=== PATIENT | female | born 1930 | race Caucasian/White ===

== ENCOUNTER 2017-07-11 18:48 | Inpatient (IN) | payer BC ==
[2017-07-11 19:07] VITALS: BMI 24.0
--- NOTE | 2017-07-11 20:04 | PDOC ---
History of Present Illness - General History Source: Patient Exam Limitations: No Limitations - History of Present Illness Initial Comments: 07/11/17 21:00 The patient is a 87 year old female, with a significant past medical history of HTN, HLD, who presents to the emergency department with worsening generalized weakness for the past 3 weeks. Patient is accompanied by daughters, who state the patient is ambulatory with walker at home however today was unable to move. Today, patient was unable to stand and walk with walker. As per daughter, patient appears increasingly weak and has become bed bound. Patient presents with family to the ED for further evaluation. Currently, patient complains of chronic knee pain secondary to arthritis. Note, patient lives alone at home and family is requesting the patient to be placed in a rehab or NH facility. Patient denies any recent trauma, injury. She denies chest pain, headache or dizziness. She denies fever, chills, abdominal pain, nausea, vomit, diarrhea or constipation. She denies dysuria, frequency, urgency or hematuria. Patient denies sick contacts or recent travel. Allergies: None Past surgical history: Hysterectomy Social history: None PCP: Dr. Clarke <Lauren Yuan - Last Filed: 07/11/17 22:14> - General History Source: Family <Sin Sanchez - Last Filed: 07/12/17 19:30> - General Chief Complaint: Pain Stated Complaint: PAIN Time Seen by Provider: 07/11/17 19:57 Past History <Lauren Yuan - Last Filed: 07/11/17 22:14> - Past Medical History HTN: Yes Hypercholesterolemia: Yes - Suicide/Smoking/Psychosocial Hx Smoking History: Never smoked Have you smoked in the past 12 months: No Information on smoking cessation initiated: No Hx Alcohol Use: No Drug/Substance Use Hx: No Substance Use Type: None <Sin Sanchez - Last Filed: 07/12/17 19:30> - Past Medical History Allergies/Adverse Reactions: Allergies Allergy/AdvReac Type Severity Reaction Status Date / Time No Known Allergies Allergy Verified 03/18/15 18:57 Home Medications: Ambulatory Orders Amlodipine Besylate [Norvasc -] 5 mg PO DAILY 03/01/15 Lovastatin 40 mg PO DAILY 03/01/15 Levothyroxine [Synthroid -] 25 mcg PO DAILY@0700 #30 tablet 03/21/15 Lisinopril [Prinivil -] 40 mg PO DAILY 07/11/17 Review of Systems - Review of Systems Able to Perform ROS?: Yes Comments:: 07/11/17 21:00 CONSTITUTIONAL: +generalized weakness Absent: fever, chills, diaphoresis, , malaise, loss of appetite HEENT: Absent: rhinorrhea, nasal congestion, throat pain, throat swelling, difficulty swallowing, mouth swelling, ear pain, eye pain, visual Changes CARDIOVASCULAR: Absent: chest pain, syncope, palpitations, irregular heart rate, lightheadedness , peripheral edema RESPIRATORY: Absent: cough, shortness of breath, dyspnea with exertion, orthopnea, wheezing, stridor, hemoptysis GASTROINTESTINAL: Absent: abdominal pain, abdominal distension, nausea, vomiting, diarrhea, constipation, melena, hematochezia GENITOURINARY: Absent: dysuria, frequency, urgency, hesitancy, hematuria, flank pain, genital pain MUSCULOSKELETAL: Absent: myalgia, arthralgia, joint swelling SKIN: Absent: rash, itching, pallor HEMATOLOGIC/IMMUNOLOGIC: Absent: easy bleeding, easy bruising, lymphadenopathy, frequent infections ENDOCRINE: Absent: unexplained weight gain, unexplained weight loss, heat intolerance, cold intolerance NEUROLOGIC: Absent: headache, focal weakness or paresthesias, dizziness, unsteady gait, seizure, mental status changes, bladder or bowel incontinence PSYCHIATRIC: Absent: anxiety, depression, suicidal or homicidal ideation, hallucinations. <Lauren Yuan - Last Filed: 07/11/17 22:14> *Physical Exam - Vital Signs Last Vital Signs Temp Pulse Resp BP Pulse Ox 98.1 F 84 18 136/66 98 07/11/17 18:48 07/11/17 18:48 07/11/17 18:48 07/11/17 18:48 07/11/17 18:48 - Physical Exam Comments: 07/11/17 21:00 GENERAL: Well developed, well nourished. Awake and alert. In no acute distress. HEENT: Normocephalic, atraumatic. PERRLA, EOMI. No conjunctival pallor. Sclerae are non -icteric. Moist mucous membranes. Oropharynx is clear. NECK: Supple. Full ROM. No JVD. Carotid pulses 2+ and symmetric, without bruits. No thyromegaly. No lymphadenopathy. CARDIOVASCULAR: Regular rate and rhythm. No murmurs, rubs, or gallops. Distal pulses are 2+ and symmetric. PULMONARY: No evidence of respiratory distress. Lungs clear to auscultation bilaterally. No wheezing, rales or rhonchi. ABDOMINAL: Soft. Non-tender. Non-distended. No rebound or guarding. No organomegaly. Normoactive bowel sounds. MUSCULOSKELETAL Normal range of motion at all joints. No bony deformities or tenderness. No CVA tenderness. EXTREMITIES: No cyanosis. No clubbing. No edema. No calf tenderness. SKIN: Warm and dry. Normal capillary refill. No rashes. No jaundice. NEUROLOGICAL: Alert, awake, appropriate. Cranial nerves 2-12 intact. No deficits to light touch and temperature in face, upper extremities and lower extremities. No motor deficits in the in face, upper extremities and lower extremities. Normoreflexic in the upper and lower extremities. Normal speech. Toes are downgoing bilaterally. Gait is normal without ataxia. PSYCHIATRIC: Cooperative. Good eye contact. Appropriate mood and affect. <Lauren Yuan - Last Filed: 07/11/17 22:14> - Vital Signs Last Vital Signs Temp Pulse Resp BP Pulse Ox 98.1 F 84 18 136/66 98 07/11/17 18:48 07/11/17 18:48 07/11/17 18:48 07/11/17 18:48 07/11/17 18:48 <Sin Sanchez - Last Filed: 07/12/17 19:30> Heart Score/ECG Review #1 07/11/17 22:[address] Daniel Antunez. rate 63 bpm Ventricular- paced rhythm Abnormal ECG <Lauren Yuan - Last Filed: 07/11/17 22:14> ED Treatment Course - LABORATORY CBC & Chemistry Diagram: 07/11/17 21:48 07/11/17 21:48 <Lauren Yuan - Last Filed: 07/11/17 22:14> - LABORATORY CBC & Chemistry Diagram: 07/12/17 06:25 07/12/17 06:25 <Sin Sanchez - Last Filed: 07/12/17 19:30> Medical Decision Making - Medical Decision Making 07/11/17 21:02 CXR Impression: Hazy opacity in the lingula with silhouetting of the left heart border is compatible with pneumonia in the appropriate clinical setting. Follow- up is recommended after completion of therapy to exclude other processes. Small left pleural effusion. Mild pulmonary vascular congestion. Reported By: Mia Melo MD 07/11/17205307/11/17 22:14 Dr. Clarke paged via phone answering service Awaiting call back <Lauren Yuan - Last Filed: 07/11/17 22:14> - Medical Decision Making 07/12/17 19:29 Dr. Sanchez: The scribe's documentation has been prepared under my direction and personally reviewed by me in its entirery. I confirm that the note above accurately reflects all work, treatment, procedures, and medical decision making performed by me. <Sin Sanchez - Last Filed: 07/12/17 19:30> *DC/Admit/Observation/Transfer - Attestations Scribe Attestion: 07/11/17 21:01 Documentation prepared by Lauren Yuan, acting as biomedical technician for Sin Sanchez DO. <Lauren Yuan - Last Filed: 07/11/17 22:14> - Discharge Dispostion Admit: Yes <Sin Sanchez - Last Filed: 07/12/17 19:30> Diagnosis at time of Disposition: UTI (urinary tract infection), Pneumonia - Referrals
[2017-07-11] MEDS ORDERED: AZITHROMYCIN IVPB 500 MG in DEXTROSE 5%-WATER - 250 ML IVPB ONE (21:07)
[2017-07-11 21:55] LABS: BASOPHIL 0.7 % (0-2.0); EOSINOPHIL 2.2 % (0-4.5); MCH 27.8 pg (25.7-33.7); MCHC 33.4 g/dl (32.0-36.0); MEAN CELL VOLUME 83.1 fl (80-96); MEAN PLT VOLUME 9.1 fl (7.5-11.1); NEUTROPHILS 69.5 % (42.8-82.8); PLATELET COUNT 261 K/MM3 (134-434); RDW 13.5 % (11.6-15.6); WHITE BLOOD COUNT 10.9 K/mm3 (4.0-10.0)
[2017-07-11 21:59] LABS: URINE APPEARANCE SLCLOUDY; URINE BILIRUBIN NEGATIVE (NEGATIVE); URINE BLOOD NEGATIVE (NEGATIVE); URINE COLOR YELLOW; URINE GLUCOSE (UA) NEGATIVE (NEGATIVE); URINE KETONE NEGATIVE (NEGATIVE); URINE NITRITE POSITIVE (NEGATIVE); URINE PROTEIN NEGATIVE (NEGATIVE); URINE UROBILINOGEN NEGATIVE mg/dL (0.2-1.0)
[2017-07-11] MEDS ORDERED: ACETAMINOPHEN 1000 MG/100 ML VIAL (NON FORMULARY) IVPB ONE (22:02)
[2017-07-11] MEDS ORDERED: ACETAMINOPHEN INJECTION 100 ML IVPB ONE (22:03)
[2017-07-11] MEDS ORDERED: cefTRIAXone SODIUM 1 GM VIAL ONE (22:04)
[2017-07-11 22:07] LABS: URINE RBC 2 /hpf (0-3); URINE WBC 27 /hpf (3-5)
[2017-07-11 22:08] LABS: INR 0.99 (0.82-1.09); PROTHROMBIN TIME (PATIENT) 11.2 SEC (9.98-11.88); URINE BACTERIA FEW /hpf (NONE SEEN); URINE HYALINE CAST 3 /lpf; URINE MUCUS RARE
[2017-07-11 22:18] LABS: ALBUMIN 3.1 g/dl (3.4-5.0); ANION GAP 7 (8-16); BILIRUBIN,TOTAL 0.4 mg/dL (0.2-1.0); CALCIUM 8.7 mg/dL (8.5-10.1); CO2 27 mmol/L (21-32); CREATININE 0.9 mg/dL (0.55-1.02); GLUCOSE,RANDOM 91 mg/dL (74-106); MAGNESIUM 2.6 mg/dL (1.8-2.4); SGOT/AST 30 U/L (15-37); SGPT/ALT 46 U/L (12-78); TOT PROT 7.1 g/dl (6.4-8.2)
[2017-07-11 22:21] LABS: ALK PHOS 287 U/L (45-117); CPK 38 IU/L (26-192); TROPONIN I < 0.02 ng/ml (0.00-0.05)
[2017-07-11] MEDS ORDERED: ALBUTEROL SO4 0.083% IH SOL 2.5 MG/3 ML VIAL.NEB. NEB PRN (23:12)
[2017-07-12] MEDS ORDERED: AZITHROMYCIN IVPB 250 ML IVPB ONE (00:31)
[2017-07-12] MEDS: LEVOTHYROXINE NA 25 MCG TABLET (FP) PO SCH (06:18)
[2017-07-12] MEDS: ACETAMINOPHEN 325 MG TABLET (FP) PO PRN ×2 (06:20→19:47)
[2017-07-12 07:39] LABS: BASOPHIL 1.7 % (0-2.0); EOSINOPHIL 1.7 % (0-4.5); MCHC 32.5 g/dl (32.0-36.0); MEAN CELL VOLUME 82.9 fl (80-96); MEAN PLT VOLUME 9.6 fl (7.5-11.1); NEUTROPHILS 76.1 % (42.8-82.8); PLATELET COUNT 253 K/MM3 (134-434); RDW 13.5 % (11.6-15.6); WHITE BLOOD COUNT 12.5 K/mm3 (4.0-10.0)
[2017-07-12 08:06] LABS: ALBUMIN 2.9 g/dl (3.4-5.0); ANION GAP 14 (8-16); CALCIUM 8.8 mg/dL (8.5-10.1); CO2 22 mmol/L (21-32); GLUCOSE,RANDOM 87 mg/dL (74-106)
[2017-07-12 08:12] LABS: ALK PHOS 264 U/L (45-117); BILIRUBIN,TOTAL 0.7 mg/dL (0.2-1.0); CREATININE 0.7 mg/dL (0.55-1.02); SGOT/AST 27 U/L (15-37); SGPT/ALT 39 U/L (12-78); TOT PROT 6.7 g/dl (6.4-8.2)
[2017-07-12 09:29] LABS: URINE LEUK ESTERASE 1+ (NEGATIVE)
[2017-07-12] MEDS ORDERED: PT OWN MED DRAWER 7, Y5N ONE ×2 (10:04→10:33)
--- NOTE | 2017-07-12 10:04 | HP ---
Admitting History and Physical - Primary Care Physician PCP: Salazar Clarke - Admission Chief Complaint: weakness History of Present Illness: ER HISTORY - History of Present Illness Initial Comments: 07/11/17 21:00 The patient is a 87 year old female, with a significant past medical history of HTN, HLD, who presents to the emergency department with worsening generalized weakness for the past 3 weeks. Patient is accompanied by daughters, who state the patient is ambulatory with walker at home however today was unable to move. Today, patient was unable to stand and walk with walker. As per daughter, patient appears increasingly weak and has become bed bound. Patient presents with family to the ED for further evaluation. Currently, patient complains of chronic knee pain secondary to arthritis. Note, patient lives alone at home and family is requesting the patient to be placed in a rehab or NH facility. Patient denies any recent trauma, injury. She denies chest pain, headache or dizziness. She denies fever, chills, abdominal pain, nausea, vomit, diarrhea or constipation. She denies dysuria, frequency, urgency or hematuria. Patient denies sick contacts or recent travel. Allergies: None Past surgical history: Hysterectomy Social history: None PCP: Dr. Clarke Pt examined on the floors Daughters at bedside Spoke with ER MD yesterday Pt has been progressively getting weaker for last 3 weeks. She has osteoarthritis of knees and usually walks with walker but has not been able to get up OOB for last week. c/o pain in knees B/L , right wrist -- wears a splint and neck pain Denies h/o fall No c/o cough or SOB or fever History Source: Patient, Family Member Limitations to Obtaining History: No Limitations - Past Medical History Cardiovascular: Yes: HTN, Hyperlipdemia, Other (s/p PPM - h/p AVblock) ...: No Rheumatology: Yes: Other (arthritis) - Past Surgical History Past Surgical History: Yes: None - Smoking History Smoking history: Never smoked Have you smoked in the past 12 months: No - Alcohol/Substance Use Hx Alcohol Use: No Home Medications - Allergies Allergies/Adverse Reactions: Allergies Allergy/AdvReac Type Severity Reaction Status Date / Time No Known Allergies Allergy Verified 03/18/15 18:57 - Home Medications Home Medications: Ambulatory Orders Amlodipine Besylate [Norvasc -] 5 mg PO DAILY 03/01/15 Lovastatin 40 mg PO DAILY 03/01/15 Levothyroxine [Synthroid -] 25 mcg PO DAILY@0700 #30 tablet 03/21/15 Lisinopril [Prinivil -] 40 mg PO DAILY 07/11/17 Review of Systems - Review of Systems Constitutional: reports: Weakness. denies: Chills, Fever, Loss of Appetite Respiratory: denies: Cough, SOB Genitourinary: denies: Burning, Discharge, Dysuria, Flank Pain Musculoskeletal: reports: Back Pain, Joint Pain Physical Examination Vital Signs: Vital Signs Temperature 98.5 F 07/12/17 09:57 Pulse Rate 86 07/12/17 09:57 Respiratory Rate 20 07/12/17 09:57 Blood Pressure 131/65 07/12/17 09:57 O2 Sat by Pulse Oximetry (%) 97 07/12/17 03:23 Constitutional: Yes: No Distress Cardiovascular: Yes: Regular Rate and Rhythm Respiratory: Yes: Diminished Gastrointestinal: Yes: Normal Bowel Sounds, Soft. No: Distention, Tenderness Extremities: Yes: Other (effusion B/L knee joints , right wrist splint-- no swelling noted) Edema: No Labs: CBC, BMP 07/12/17 06:25 07/12/17 06:25 Imaging - Results Chest X-ray: Image Reviewed EKG: Image Reviewed Problem List - Problems (1) Pneumonia Code(s): J18.9 - PNEUMONIA, UNSPECIFIED ORGANISM (2) UTI (urinary tract infection) Code(s): N39.0 - URINARY TRACT INFECTION, SITE NOT SPECIFIED (3) Hyperlipidemia Code(s): E78.5 - HYPERLIPIDEMIA, UNSPECIFIED (4) Hypertension Code(s): I10 - ESSENTIAL (PRIMARY) HYPERTENSION Qualifiers: Hypertension type: essential hypertension Qualified Code(s): I10 - Essential (primary) hypertension; I10 - Essential (primary) hypertension; I10 - Essential (primary) hypertension (5) Weakness generalized Code(s): R53.1 - WEAKNESS Assessment/Plan PLAN on Antibiotics check urine antigens cultures done check xrays of knees, rt wrist and C Spine Motrin as needed Albuterol as needed PT eval will eventually need STR DVT prophylaxis-- Lovenox sc
[2017-07-12] MEDS: amLODIPine BESYLATE 5 MG TABLET (FP) PO SCH (10:10)
[2017-07-12] MEDS: LISINOPRIL 20 MG TABLET (FP) PO SCH (10:10)
[2017-07-12] MEDS: CEFTRIAXONE 1 G/50 ML PREMIX 50 ML IVPB SCH (12:23)
--- NOTE | 2017-07-12 13:06 | EKG ---
Test Reason : Blood Pressure : / mmHG Vent. Rate : 063 BPM Atrial Rate : 043 BPM P-R Int : 000 ms QRS Dur : 170 ms QT Int : 464 ms P-R-T Axes : 000 267 088 degrees QTc Int : 474 ms Ventricular-paced rhythm ABNORMAL ECG WHEN COMPARED WITH ECG OF 19-MAR-2015 08:43, ELECTRONIC VENTRICULAR PACEMAKER HAS REPLACED SINUS RHYTHM VENT. RATE HAS INCREASED BY 23 BPM Confirmed by DELMA CULP MD ([id number]) on 07/12/2017 1:05:50 PM Referred By: Confirmed By:DELMA CULP MD
[2017-07-12] MEDS: AZITHROMYCIN IVPB 250 ML IVPB SCH (14:12)
[2017-07-12] MEDS: LIDOCAINE 5% TOPICAL PATCH TP SCH (18:30)
[2017-07-12] MEDS: ATORVASTATIN CA 10 MG TABLET (FP) PO SCH (21:24)
[2017-07-13] MEDS: LEVOTHYROXINE NA 25 MCG TABLET (FP) PO SCH (06:21)
[2017-07-13 07:57] LABS: EOSINOPHIL 1.7 % (0-4.5); MCH 26.7 pg (25.7-33.7); MCHC 32.4 g/dl (32.0-36.0); MEAN CELL VOLUME 82.5 fl (80-96); MEAN PLT VOLUME 9.7 fl (7.5-11.1); NEUTROPHILS 76.8 % (42.8-82.8); PLATELET COUNT 253 K/MM3 (134-434); RDW 13.5 % (11.6-15.6); WHITE BLOOD COUNT 12.8 K/mm3 (4.0-10.0)
[2017-07-13] MEDS: CEFTRIAXONE 1 G/50 ML PREMIX 50 ML IVPB SCH (09:20)
[2017-07-13] MEDS: ENOXAPARIN NA (PORCINE) 30 MG/0.3 ML DISP.SYRIN SQ SCH (09:21)
[2017-07-13] MEDS: amLODIPine BESYLATE 5 MG TABLET (FP) PO SCH (09:21)
[2017-07-13] MEDS: LISINOPRIL 20 MG TABLET (FP) PO SCH (09:21)
[2017-07-13] MEDS: LIDOCAINE 5% TOPICAL PATCH TP SCH (09:33)
--- NOTE | 2017-07-13 13:11 | PN ---
Progress Note, Physician Chief Complaint: has pain in knees otherwise she is feels fine - Current Medication List Current Medications: Active Medications Acetaminophen (Tylenol -) 650 mg PO Q6H PRN PRN Reason: FEVER Last Admin: 07/12/17 19:47 Dose: 650 mg Albuterol Sulfate (Ventolin 0.083% Nebulizer Soln -) 1 amp NEB Q8H PRN PRN Reason: SHORT OF BREATH/WHEEZING Amlodipine Besylate (Norvasc -) 5 mg PO DAILY [facility] Last Admin: 07/13/17 09:21 Dose: 5 mg Atorvastatin Calcium (Lipitor -) 10 mg PO HS [facility] Last Admin: 07/12/17 21:24 Dose: 10 mg Enoxaparin Sodium (Lovenox -) 30 mg SQ DAILY [facility] Last Admin: 07/13/17 09:21 Dose: 30 mg Azithromycin (Zithromax 500mg Ivpb (Pre-Docked)) 250 mls @ 250 mls/hr IVPB DAILY [facility] Last Admin: 07/12/17 14:12 Dose: 250 mls/hr CEFTRIAXONE 1 G/50 ML PREMIX (Ceftriaxone 1 Gm-D5w Bag) 50 mls @ 100 mls/hr IVPB DAILY [facility] Last Admin: 07/13/17 09:20 Dose: 100 mls/hr Ibuprofen (Motrin -) 400 mg PO Q6H PRN PRN Reason: PAIN Levothyroxine Sodium (Synthroid -) 25 mcg PO DAILY@0700 [facility] Last Admin: 07/13/17 06:21 Dose: 25 mcg Lidocaine (Lidoderm Patch -) 2 patch TP DAILY [facility] Last Admin: 07/13/17 09:33 Dose: 2 patch Lisinopril (Prinivil) 40 mg PO DAILY [facility] Last Admin: 07/13/17 09:21 Dose: 40 mg - Objective Vital Signs: Vital Signs Temperature 98.7 F 07/13/17 09:06 Pulse Rate 60 07/13/17 09:06 Respiratory Rate 20 07/13/17 09:06 Blood Pressure 137/69 07/13/17 09:06 O2 Sat by Pulse Oximetry (%) 97 07/13/17 09:00 Constitutional: Yes: No Distress Cardiovascular: Yes: Regular Rate and Rhythm Respiratory: Yes: CTA Bilaterally Gastrointestinal: Yes: Normal Bowel Sounds, Soft. No: Tenderness Extremities: Yes: Other (B/L knee effusion) Edema: No Labs: CBC, BMP 07/13/17 06:20 07/12/17 06:25 INR, PTT INR 0.99 (0.82-1.09) 07/11/17 21:48 Problem List - Problems (1) Pneumonia Code(s): J18.9 - PNEUMONIA, UNSPECIFIED ORGANISM (2) UTI (urinary tract infection) Code(s): N39.0 - URINARY TRACT INFECTION, SITE NOT SPECIFIED (3) Hyperlipidemia Code(s): E78.5 - HYPERLIPIDEMIA, UNSPECIFIED (4) Hypertension Code(s): I10 - ESSENTIAL (PRIMARY) HYPERTENSION Qualifiers: Hypertension type: essential hypertension Qualified Code(s): I10 - Essential (primary) hypertension; I10 - Essential (primary) hypertension; I10 - Essential (primary) hypertension (5) Weakness generalized Code(s): R53.1 - WEAKNESS Assessment/Plan PLAN on Antibiotics check urine antigens cultures - blood cultures negative xrays of knees, rt wrist and C Spine -noted Motrin as needed Albuterol as needed PT eval will eventually need STR DVT prophylaxis-- Lovenox sc dc planning for str
[2017-07-13 13:23] LABS: ERYTHROCYTE SEDIMENTATION RATE 86 mm/hr (0-30)
[2017-07-13] MEDS: AZITHROMYCIN IVPB 250 ML IVPB SCH (14:57)
[2017-07-13] MEDS: AZITHROMYCIN IVPB 500 MG in DEXTROSE 5%-WATER - 250 ML IVPB SCH (15:16)
[2017-07-13] MEDS: ATORVASTATIN CA 10 MG TABLET (FP) PO SCH (21:27)
[2017-07-14] MEDS: LEVOTHYROXINE NA 25 MCG TABLET (FP) PO SCH (06:19)
[2017-07-14] MEDS ORDERED: PT OWN MED DRAWER 7, Y5N ONE (10:15)
--- NOTE | 2017-07-14 10:20 | PN ---
Progress Note (short form) - Note Progress Note: patient seen and examined today Chart reviewed Chief complaint pain in the knees Daughter at bedside Patient reports Motrin not helping X-rays reviewed Vital Signs Temp 98.8 F 07/14/17 06:00 Pulse 57 L 07/14/17 06:00 Resp 19 07/14/17 06:00 BP 131/56 07/14/17 06:00 Pulse Ox 96 07/13/17 22:00 Intake & Output 07/13/17 07/13/17 07/14/17 11:59 23:59 11:59 Intake Total 0 550 Balance 0 550 Intake: IVPB 0 0 Oral 550 Other: Voiding Method Incontinent Incontinent Incontinent # Unmeasured Voids Void 3 2 Bowel Movement No # Bowel Movements 0 Active Medications Acetaminophen (Tylenol -) 650 mg PO Q6H PRN PRN Reason: FEVER Last Admin: 07/12/17 19:47 Dose: 650 mg Albuterol Sulfate (Ventolin 0.083% Nebulizer Soln -) 1 amp NEB Q8H PRN PRN Reason: SHORT OF BREATH/WHEEZING Amlodipine Besylate (Norvasc -) 5 mg PO DAILY [facility] Last Admin: 07/13/17 09:21 Dose: 5 mg Atorvastatin Calcium (Lipitor -) 10 mg PO HS [facility] Last Admin: 07/13/17 21:27 Dose: 10 mg Enoxaparin Sodium (Lovenox -) 30 mg SQ DAILY [facility] Last Admin: 07/13/17 09:21 Dose: 30 mg CEFTRIAXONE 1 G/50 ML PREMIX (Ceftriaxone 1 Gm-D5w Bag) 50 mls @ 100 mls/hr IVPB DAILY [facility] Last Admin: 07/13/17 09:20 Dose: 100 mls/hr Azithromycin 500 mg/ Dextrose 250 mls @ 250 mls/hr IVPB DAILY [facility] Last Admin: 07/13/17 15:16 Dose: 250 mls/hr Ibuprofen (Motrin -) 400 mg PO Q6H PRN PRN Reason: PAIN Levothyroxine Sodium (Synthroid -) 25 mcg PO DAILY@0700 [facility] Last Admin: 07/14/17 06:19 Dose: 25 mcg Lidocaine (Lidoderm Patch -) 2 patch TP DAILY [facility] Last Admin: 07/13/17 09:33 Dose: 2 patch Lisinopril (Prinivil) 40 mg PO DAILY [facility] Last Admin: 07/13/17 09:21 Dose: 40 mg CBC, BMP 07/13/17 06:20 07/12/17 06:25 Microbiology 07/11/17 21:48 Blood Culture - Preliminary Blood - Peripheral Venous NO GROWTH OBTAINED AFTER 48 HOURS, INCUBATION TO CONTINUE FOR 3 DAYS. 07/11/17 21:48 Blood Culture - Preliminary Blood - Peripheral Venous NO GROWTH OBTAINED AFTER 48 HOURS, INCUBATION TO CONTINUE FOR 3 DAYS. 07/12/17 03:15 Urine Culture - Final Urine - Urine Clean Catch Contaminated: Please Repeat physical exam Constitutional: Yes:mild distress due to pain Cardiovascular: Yes: Regular Rate and Rhythm Respiratory: Yes: CTA to auscultation. Gastrointestinal: Yes: Normal Bowel Sounds, Soft. No: Tenderness Extremities: Yes: Other (B/L knee effusion) Edema: No Problem List - Problems (1) Pneumonia Code(s): J18.9 - PNEUMONIA, UNSPECIFIED ORGANISM (2) UTI (urinary tract infection) Code(s): N39.0 - URINARY TRACT INFECTION, SITE NOT SPECIFIED (3) Hyperlipidemia Code(s): E78.5 - HYPERLIPIDEMIA, UNSPECIFIED (4) Hypertension Code(s): I10 - ESSENTIAL (PRIMARY) HYPERTENSION Qualifiers: Hypertension type: essential hypertension Qualified Code(s): I10 - Essential (primary) hypertension; I10 - Essential (primary) hypertension; I10 - Essential (primary) hypertension (5) Weakness generalized Code(s): R53.1 - WEAKNESS Assessment/Plan discussed with patient's daughter Will start on tramadol for pain control May need injection if not better Continue antibiotics X-rays reviewed Likely need short-term rehabilitation Patient's daughter in agreement Repeat chest x-ray tomorrow Discussed with manager case also Will follow
[2017-07-14] MEDS: LIDOCAINE 5% TOPICAL PATCH TP SCH (11:09)
[2017-07-14] MEDS: CEFTRIAXONE 1 G/50 ML PREMIX 50 ML IVPB SCH (11:09)
[2017-07-14] MEDS: amLODIPine BESYLATE 5 MG TABLET (FP) PO SCH (11:10)
[2017-07-14] MEDS: ENOXAPARIN NA (PORCINE) 30 MG/0.3 ML DISP.SYRIN SQ SCH (11:10)
[2017-07-14] MEDS: LISINOPRIL 20 MG TABLET (FP) PO SCH (11:10)
[2017-07-14] MEDS: AZITHROMYCIN IVPB 500 MG in DEXTROSE 5%-WATER - 250 ML IVPB SCH (11:10)
[2017-07-14] MEDS ORDERED: INSULIN (NOVOLOG) ASPART 100 UNITS/ML 10ML VIAL ONE (11:30)
[2017-07-14] MEDS: traMADol HCL 50 MG TABLET PO PRN (11:35)
[2017-07-14] MEDS: IBUPROFEN 400 MG TABLET (FP) PO PRN (17:31)
[2017-07-14] MEDS: ATORVASTATIN CA 10 MG TABLET (FP) PO SCH (21:17)
[2017-07-14] MEDS: ACETAMINOPHEN 325 MG TABLET (FP) PO PRN (21:17)
[2017-07-15] MEDS: LEVOTHYROXINE NA 25 MCG TABLET (FP) PO SCH (06:29)
[2017-07-15 06:42] LABS: BASOPHIL 0.8 % (0-2.0); MCH 27.4 pg (25.7-33.7); MCHC 33.3 g/dl (32.0-36.0); MEAN CELL VOLUME 82.5 fl (80-96); MEAN PLT VOLUME 9.6 fl (7.5-11.1); NEUTROPHILS 77.6 % (42.8-82.8); PLATELET COUNT 245 K/MM3 (134-434); RDW 13.2 % (11.6-15.6); WHITE BLOOD COUNT 14.5 K/mm3 (4.0-10.0)
[2017-07-15] MEDS: traMADol HCL 50 MG TABLET PO PRN (10:02)
[2017-07-15] MEDS ORDERED: PT OWN MED DRAWER 7, Y5N ONE (11:02)
[2017-07-15] MEDS: CEFTRIAXONE 1 G/50 ML PREMIX 50 ML IVPB SCH (11:16)
[2017-07-15] MEDS: LIDOCAINE 5% TOPICAL PATCH TP SCH (11:23)
[2017-07-15] MEDS: ENOXAPARIN NA (PORCINE) 30 MG/0.3 ML DISP.SYRIN SQ SCH (11:24)
[2017-07-15] MEDS: LISINOPRIL 20 MG TABLET (FP) PO SCH (11:25)
[2017-07-15] MEDS: amLODIPine BESYLATE 5 MG TABLET (FP) PO SCH (11:25)
[2017-07-15] MEDS: AZITHROMYCIN IVPB 500 MG in DEXTROSE 5%-WATER - 250 ML IVPB SCH (11:26)
--- NOTE | 2017-07-15 11:58 | PN ---
Progress Note (short form) - Note Progress Note: patient seen and examined today feels better pain much better afebrile wbc - increased Daughter at bedside Vital Signs Temp 98.7 F 07/15/17 09:10 Pulse 86 07/15/17 09:10 Resp 26 H 07/15/17 09:10 BP 137/69 07/15/17 09:10 Pulse Ox 97 07/14/17 21:00 Intake & Output 07/14/17 07/14/17 07/15/17 11:59 23:59 11:59 Intake Total 600 0 Balance 600 0 Intake: IVPB 300 0 Oral 300 TPN/PPN 0 Other: Voiding Method Incontinent Incontinent # Unmeasured Voids Void 2 1 Bowel Movement No # Bowel Movements 0 Active Medications Acetaminophen (Tylenol -) 650 mg PO Q6H PRN PRN Reason: FEVER Last Admin: 07/14/17 21:17 Dose: 650 mg Albuterol Sulfate (Ventolin 0.083% Nebulizer Soln -) 1 amp NEB Q8H PRN PRN Reason: SHORT OF BREATH/WHEEZING Amlodipine Besylate (Norvasc -) 5 mg PO DAILY [facility] Last Admin: 07/15/17 11:25 Dose: 5 mg Atorvastatin Calcium (Lipitor -) 10 mg PO HS [facility] Last Admin: 07/14/17 21:17 Dose: 10 mg Enoxaparin Sodium (Lovenox -) 30 mg SQ DAILY [facility] Last Admin: 07/15/17 11:24 Dose: 30 mg CEFTRIAXONE 1 G/50 ML PREMIX (Ceftriaxone 1 Gm-D5w Bag) 50 mls @ 100 mls/hr IVPB DAILY [facility] Last Admin: 07/15/17 11:16 Dose: 100 mls/hr Azithromycin 500 mg/ Dextrose 250 mls @ 250 mls/hr IVPB DAILY [facility] Last Admin: 07/15/17 11:26 Dose: 250 mls/hr Ibuprofen (Motrin -) 400 mg PO Q6H PRN PRN Reason: PAIN Last Admin: 07/14/17 17:31 Dose: 400 mg Levothyroxine Sodium (Synthroid -) 25 mcg PO DAILY@0700 [facility] Last Admin: 07/15/17 06:29 Dose: 25 mcg Lidocaine (Lidoderm Patch -) 2 patch TP DAILY [facility] Last Admin: 07/15/17 11:23 Dose: 2 patch Lisinopril (Prinivil) 40 mg PO DAILY [facility] Last Admin: 07/15/17 11:25 Dose: 40 mg Tramadol HCl (Ultram -) 50 mg PO Q8H PRN PRN Reason: PAIN Last Admin: 07/15/17 10:02 Dose: 50 mg cxr-- better CBC, BMP 07/15/17 05:55 07/12/17 06:25 Microbiology 07/11/17 21:48 Blood Culture - Preliminary Blood - Peripheral Venous NO GROWTH OBTAINED AFTER 72 HOURS, INCUBATION TO CONTINUE FOR 2 DAYS. 07/11/17 21:48 Blood Culture - Preliminary Blood - Peripheral Venous NO GROWTH OBTAINED AFTER 72 HOURS, INCUBATION TO CONTINUE FOR 2 DAYS. Physical exam Constitutional: Yes:comfortable Cardiovascular: Yes: Regular Rate and Rhythm Respiratory: Yes: CTA to auscultation. Gastrointestinal: Yes: Normal Bowel Sounds, Soft. No: Tenderness Extremities: Yes: Other (B/L knee effusion) Edema: No Problem List - Problems (1) Pneumonia Code(s): J18.9 - PNEUMONIA, UNSPECIFIED ORGANISM (2) UTI (urinary tract infection) Code(s): N39.0 - URINARY TRACT INFECTION, SITE NOT SPECIFIED (3) Hyperlipidemia Code(s): E78.5 - HYPERLIPIDEMIA, UNSPECIFIED (4) Hypertension Code(s): I10 - ESSENTIAL (PRIMARY) HYPERTENSION Qualifiers: Hypertension type: essential hypertension Qualified Code(s): I10 - Essential (primary) hypertension; I10 - Essential (primary) hypertension; I10 - Essential (primary) hypertension (5) Weakness generalized Code(s): R53.1 - WEAKNESS Assessment/Plan clinically much better. pain much better. continue present care cultures -ve increased wbcs will repeat cbc tomorrow daily oob - chair. will follow.
[2017-07-15] MEDS: ACETAMINOPHEN 325 MG TABLET (FP) PO PRN (18:59)
[2017-07-15] MEDS: ATORVASTATIN CA 10 MG TABLET (FP) PO SCH (22:10)
[2017-07-16] MEDS: LEVOTHYROXINE NA 25 MCG TABLET (FP) PO SCH (06:25)
[2017-07-16 08:42] LABS: BASOPHIL 0.7 % (0-2.0); EOSINOPHIL 1.5 % (0-4.5); MCH 27.1 pg (25.7-33.7); MEAN CELL VOLUME 82.3 fl (80-96); MEAN PLT VOLUME 10.1 fl (7.5-11.1); NEUTROPHILS 80.1 % (42.8-82.8); PLATELET COUNT 291 K/MM3 (134-434); RDW 13.3 % (11.6-15.6); WHITE BLOOD COUNT 13.2 K/mm3 (4.0-10.0)
[2017-07-16] MEDS ORDERED: PT OWN MED DRAWER 7, Y5N ONE (10:30)
[2017-07-16] MEDS: amLODIPine BESYLATE 5 MG TABLET (FP) PO SCH (10:37)
[2017-07-16] MEDS: LISINOPRIL 20 MG TABLET (FP) PO SCH (10:37)
[2017-07-16] MEDS: ENOXAPARIN NA (PORCINE) 30 MG/0.3 ML DISP.SYRIN SQ SCH (10:37)
[2017-07-16] MEDS: LIDOCAINE 5% TOPICAL PATCH TP SCH (10:48)
--- NOTE | 2017-07-16 12:00 | PN ---
Progress Note (short form) - Note Progress Note: patient seen and examined today feels ok. low grade temp. pain better but still in knees/ wrists afebrile wbc - slightly decreased Daughter at bedside. Vital Signs Temp 99.9 F H 07/16/17 08:10 Pulse 86 07/16/17 08:10 Resp 18 07/16/17 08:10 BP 144/70 07/16/17 08:10 Pulse Ox 97 07/16/17 09:00 Intake & Output 07/15/17 07/15/17 07/16/17 11:59 23:59 11:59 Intake Total 0 1460 Balance 0 1460 Intake: IVPB 0 Oral 1460 Other: Voiding Method Incontinent Incontinent Incontinent # Unmeasured Voids Void 3 1 Bowel Movement No No Active Medications Acetaminophen (Tylenol -) 650 mg PO Q6H PRN PRN Reason: FEVER Last Admin: 07/14/17 21:17 Dose: 650 mg Albuterol Sulfate (Ventolin 0.083% Nebulizer Soln -) 1 amp NEB Q8H PRN PRN Reason: SHORT OF BREATH/WHEEZING Amlodipine Besylate (Norvasc -) 5 mg PO DAILY [facility] Last Admin: 07/15/17 11:25 Dose: 5 mg Atorvastatin Calcium (Lipitor -) 10 mg PO HS [facility] Last Admin: 07/14/17 21:17 Dose: 10 mg Enoxaparin Sodium (Lovenox -) 30 mg SQ DAILY [facility] Last Admin: 07/15/17 11:24 Dose: 30 mg CEFTRIAXONE 1 G/50 ML PREMIX (Ceftriaxone 1 Gm-D5w Bag) 50 mls @ 100 mls/hr IVPB DAILY [facility] Last Admin: 07/15/17 11:16 Dose: 100 mls/hr Azithromycin 500 mg/ Dextrose 250 mls @ 250 mls/hr IVPB DAILY [facility] Last Admin: 07/15/17 11:26 Dose: 250 mls/hr Ibuprofen (Motrin -) 400 mg PO Q6H PRN PRN Reason: PAIN Last Admin: 07/14/17 17:31 Dose: 400 mg Levothyroxine Sodium (Synthroid -) 25 mcg PO DAILY@0700 [facility] Last Admin: 07/15/17 06:29 Dose: 25 mcg Lidocaine (Lidoderm Patch -) 2 patch TP DAILY [facility] Last Admin: 07/15/17 11:23 Dose: 2 patch Lisinopril (Prinivil) 40 mg PO DAILY [facility] Last Admin: 07/15/17 11:25 Dose: 40 mg Tramadol HCl (Ultram -) 50 mg PO Q8H PRN PRN Reason: PAIN Last Admin: 07/15/17 10:02 Dose: 50 mg CBC, BMP 07/16/17 07:34 07/12/17 06:25 Physical exam Constitutional: Yes:comfortable Cardiovascular: Yes: Regular Rate and Rhythm Respiratory: Yes: CTA to auscultation. Gastrointestinal: Yes: Normal Bowel Sounds, Soft. No: Tenderness Extremities: Yes: Other (B/L knee effusion) Edema: No Problem List - Problems (1) Pneumonia Code(s): J18.9 - PNEUMONIA, UNSPECIFIED ORGANISM (2) UTI (urinary tract infection) Code(s): N39.0 - URINARY TRACT INFECTION, SITE NOT SPECIFIED (3) Hyperlipidemia Code(s): E78.5 - HYPERLIPIDEMIA, UNSPECIFIED (4) Hypertension Code(s): I10 - ESSENTIAL (PRIMARY) HYPERTENSION Qualifiers: Hypertension type: essential hypertension Qualified Code(s): I10 - Essential (primary) hypertension; I10 - Essential (primary) hypertension; I10 - Essential (primary) hypertension (5) Weakness generalized Code(s): R53.1 - WEAKNESS Assessment/Plan clinically better. pain better.- still in knees may benefit ftom inj will consult ortho continue present care cultures -ve monitor cbc will repeat cbc tomorrow daily oob - chair. will follow. anticipate d/c tomorrow
[2017-07-16] MEDS: CEFTRIAXONE 1 G/50 ML PREMIX 50 ML IVPB SCH (12:35)
[2017-07-16] MEDS: AZITHROMYCIN IVPB 500 MG in DEXTROSE 5%-WATER - 250 ML IVPB SCH (13:41)
[2017-07-16] MEDS: traMADol HCL 50 MG TABLET PO PRN (21:19)
[2017-07-16] MEDS: ATORVASTATIN CA 10 MG TABLET (FP) PO SCH (21:19)
[2017-07-17] MEDS: ACETAMINOPHEN 325 MG TABLET (FP) PO PRN (02:32)
[2017-07-17] MEDS: LEVOTHYROXINE NA 25 MCG TABLET (FP) PO SCH (06:09)
[2017-07-17] MEDS: IBUPROFEN 400 MG TABLET (FP) PO PRN (06:09)
[2017-07-17 07:11] LABS: MCH 27.5 pg (25.7-33.7); MCHC 33.4 g/dl (32.0-36.0); MEAN CELL VOLUME 82.4 fl (80-96); MEAN PLT VOLUME 9.6 fl (7.5-11.1); PLATELET COUNT 311 K/MM3 (134-434); RDW 13.2 % (11.6-15.6); WHITE BLOOD COUNT 12.4 K/mm3 (4.0-10.0)
[2017-07-17 07:47] LABS: BASOPHIL 0.6 % (0-2.0); EOSINOPHIL 3.1 % (0-4.5); NEUTROPHILS 72.4 % (42.8-82.8)
--- NOTE | 2017-07-17 10:01 | CON.ORTH ---
Consult Reason for Consultation:: b/l knee pain, right wrist pain - Past Medical History Cardio/Vascular: Yes: HTN, Hyperlipdemia, Other (s/p PPM - h/p AVblock) ...: No Rheumatology: Yes: Other (arthritis) - Past Surgical History Past Surgical History: Yes: None - Alcohol/Substance Use Hx Alcohol Use: No - Smoking History Smoking history: Never smoked Have you smoked in the past 12 months: No Home Medications - Allergies Allergies/Adverse Reactions: Allergies Allergy/AdvReac Type Severity Reaction Status Date / Time No Known Allergies Allergy Verified 03/18/15 18:57 - Home Medications Home Medications: Ambulatory Orders Amlodipine Besylate [Norvasc -] 5 mg PO DAILY 03/01/15 Lovastatin 40 mg PO DAILY 03/01/15 Levothyroxine [Synthroid -] 25 mcg PO DAILY@0700 #30 tablet 03/21/15 Lisinopril [Prinivil -] 40 mg PO DAILY 07/11/17 Amox-Tr/K Cl [Augmentin - 500Mg Tablet] 1 tab PO BID #14 tab 07/13/17 Enoxaparin [Lovenox -] 30 mg SQ DAILY #20 syringe 07/13/17 Ibuprofen [Motrin -] 400 mg PO Q6H PRN #30 tablet 07/13/17 Lactobacillus Acidophilus [Bacid -] 1 each PO DAILY #30 capsule 07/13/17 Lidocaine 5% Patch [Lidoderm -] 2 patch TP DAILY #60 patch 07/13/17 Physical Exam for Ortho Vital Signs: Vital Signs Temperature 98.4 F 07/17/17 09:14 Pulse Rate 90 07/17/17 09:14 Respiratory Rate 20 07/17/17 09:14 Blood Pressure 125/56 07/17/17 09:14 O2 Sat by Pulse Oximetry (%) 97 07/16/17 20:47 Labs: CBC, BMP 07/17/17 06:10 07/12/17 06:25 INR, PTT INR 0.99 (0.82-1.09) 07/11/17 21:48 - Upper Extremity Wrist: Yes: Right, Limited ROM, Pain, Tenderness, Other (+ttp over wrist joint and basal joint, nvi) - Lower Extremity Knee: Yes: Left, Right, Limited ROM, Pain, Tenderness, Other (rom 0-100, nvi) Imaging - Results X-ray: Report Reviewed, Image Reviewed Assessment/Plan 87 year old female, with a significant past medical history of HTN, HLD, who presents to the emergency department with worsening generalized weakness for the past 3 weeks. c/o pain in b/l knees and right wrist. Had a distal radius fx many years ago. a/p b/l knee djd, right wrist djd lido/depo injection for right knee to be ordered PT, wbat oob dvt ppx will follow d/w Dr. Starks
[2017-07-17] MEDS ORDERED: methylPREDNISolone ACET (DEPO) 80 MG/1 ML VIAL IAR ONE (10:30)
[2017-07-17] MEDS: LIDOCAINE 5% TOPICAL PATCH TP SCH (10:47)
[2017-07-17] MEDS: LISINOPRIL 20 MG TABLET (FP) PO SCH (10:47)
[2017-07-17] MEDS: CEFTRIAXONE 1 G/50 ML PREMIX 50 ML IVPB SCH (10:47)
[2017-07-17] MEDS: ENOXAPARIN NA (PORCINE) 30 MG/0.3 ML DISP.SYRIN SQ SCH (10:47)
[2017-07-17] MEDS: amLODIPine BESYLATE 5 MG TABLET (FP) PO SCH (10:47)
[2017-07-17] MEDS: AZITHROMYCIN IVPB 500 MG in DEXTROSE 5%-WATER - 250 ML IVPB SCH (11:23)
--- NOTE | 2017-07-17 11:50 | PN ---
Progress Note (short form) - Note Progress Note: patient seen and examined today feels ok. ortho consult appreciated-- inj planned for later today. daughter at bedside Vital Signs Temp 98.4 F 07/17/17 09:14 Pulse 90 07/17/17 09:14 Resp 20 07/17/17 09:14 BP 125/56 07/17/17 09:14 Pulse Ox 97 07/16/17 20:47 Intake & Output 07/16/17 07/16/17 07/17/17 11:59 23:59 11:59 Intake Total 770 375 Balance 770 375 Intake: IVPB 400 0 Oral 370 375 Other: Voiding Method Incontinent Incontinent Incontinent # Unmeasured Voids Void 1 2 1 Bowel Movement No Yes Yes # Bowel Movements 1 Active Medications Acetaminophen (Tylenol -) 650 mg PO Q6H PRN PRN Reason: FEVER Last Admin: 07/14/17 21:17 Dose: 650 mg Albuterol Sulfate (Ventolin 0.083% Nebulizer Soln -) 1 amp NEB Q8H PRN PRN Reason: SHORT OF BREATH/WHEEZING Amlodipine Besylate (Norvasc -) 5 mg PO DAILY [facility] Last Admin: 07/15/17 11:25 Dose: 5 mg Atorvastatin Calcium (Lipitor -) 10 mg PO HS [facility] Last Admin: 07/14/17 21:17 Dose: 10 mg Enoxaparin Sodium (Lovenox -) 30 mg SQ DAILY [facility] Last Admin: 07/15/17 11:24 Dose: 30 mg CEFTRIAXONE 1 G/50 ML PREMIX (Ceftriaxone 1 Gm-D5w Bag) 50 mls @ 100 mls/hr IVPB DAILY [facility] Last Admin: 07/15/17 11:16 Dose: 100 mls/hr Azithromycin 500 mg/ Dextrose 250 mls @ 250 mls/hr IVPB DAILY [facility] Last Admin: 07/15/17 11:26 Dose: 250 mls/hr Ibuprofen (Motrin -) 400 mg PO Q6H PRN PRN Reason: PAIN Last Admin: 07/14/17 17:31 Dose: 400 mg Levothyroxine Sodium (Synthroid -) 25 mcg PO DAILY@0700 [facility] Last Admin: 07/15/17 06:29 Dose: 25 mcg Lidocaine (Lidoderm Patch -) 2 patch TP DAILY [facility] Last Admin: 07/15/17 11:23 Dose: 2 patch Lisinopril (Prinivil) 40 mg PO DAILY [facility] Last Admin: 07/15/17 11:25 Dose: 40 mg Tramadol HCl (Ultram -) 50 mg PO Q8H PRN PRN Reason: PAIN Last Admin: 07/15/17 10:02 Dose: 50 mg CBC, BMP 07/17/17 06:10 07/12/17 06:25 Physical exam Constitutional: Yes:comfortable/ no distress. Cardiovascular: Yes: Regular Rate and Rhythm Respiratory: Yes: CTA to auscultation. Gastrointestinal: Yes: Normal Bowel Sounds, Soft. No: Tenderness Extremities: Yes: Other (B/L knee effusion) Edema: No Problem List - Problems (1) Pneumonia Code(s): J18.9 - PNEUMONIA, UNSPECIFIED ORGANISM (2) UTI (urinary tract infection) Code(s): N39.0 - URINARY TRACT INFECTION, SITE NOT SPECIFIED (3) Hyperlipidemia Code(s): E78.5 - HYPERLIPIDEMIA, UNSPECIFIED (4) Hypertension Code(s): I10 - ESSENTIAL (PRIMARY) HYPERTENSION Qualifiers: Hypertension type: essential hypertension Qualified Code(s): I10 - Essential (primary) hypertension; I10 - Essential (primary) hypertension; I10 - Essential (primary) hypertension (5) Weakness generalized Code(s): R53.1 - WEAKNESS Assessment/Plan clinically better. pain better.- still in knees may benefit ftom inj-- planned for later today decreased cbc discussed with daughter/ correctional case manager Anticipate discharge later today or tomorrow after inj- how sh is doing. will follow d/c abx and observe.
[2017-07-17 14:27] VITALS: BP 111/47; PULSE 72; TEMP 98.1
[2017-07-17] MEDS ORDERED: PT OWN MED DRAWER 7, Y5N ONE ×2 (15:05→15:51)
[2017-07-17] MEDS ORDERED: LIDOCAINE HCL 1%, 10 MG/ML (20ML VIAL) ONE (15:50)
--- NOTE | 2017-07-17 15:54 | DS ---
Physical Examination Vital Signs: Vital Signs Temperature 98.1 F 07/17/17 14:25 Pulse Rate 72 07/17/17 14:25 Respiratory Rate 20 07/17/17 09:14 Blood Pressure 111/47 07/17/17 14:25 O2 Sat by Pulse Oximetry (%) 97 07/16/17 20:47 Findings/Remarks: see today progress note Labs: CBC, BMP 07/17/17 06:10 07/12/17 06:25 Discharge Summary Reason For Visit: UTI Current Active Problems Pneumonia (Acute) UTI (urinary tract infection) (Acute) Weakness generalized (Acute) Hospital Course: The patient is a 87 year old female, with a significant past medical history of HTN, HLD, who presents to the emergency department with worsening generalized weakness for the past 3 weeks. patient found to have a arthritis knees and generalized body aches Also possible pneumonia and UTI Treated with antibiotics and pain medications Not better Follow-up chest x-ray cleared Urine culture--- contaminated patient going to get injection in the knee today Will discharge to [facility] for short-term rehabilitation Discussed in detail with patient's daughter Medications reconciled Case also discussed with shelter case manager Will follow Condition: Improved - Instructions Referrals: Salazar Clarke MD [Primary Care Provider] - [facility]position[facility] - Home Medications Comprehensive Discharge Medication List: Ambulatory Orders Amlodipine Besylate [Norvasc -] 5 mg PO DAILY 03/01/15 Lovastatin 40 mg PO DAILY 03/01/15 Levothyroxine [Synthroid -] 25 mcg PO DAILY@0700 #30 tablet 03/21/15 Lisinopril [Prinivil -] 40 mg PO DAILY 07/11/17 Enoxaparin [Lovenox -] 30 mg SQ DAILY #20 syringe 07/13/17 Ibuprofen [Motrin -] 400 mg PO Q6H PRN #30 tablet 07/13/17 Lactobacillus Acidophilus [Bacid -] 1 each PO DAILY #30 capsule 07/13/17 Lidocaine 5% Patch [Lidoderm -] 2 patch TP DAILY #60 patch 07/13/17 Acetaminophen [Tylenol .Regular Strength -] 650 mg PO Q6H PRN #0 tablet Albuterol 0.083% Nebulizer Maryellen [Ventolin 0.083% Nebulizer Soln -] 1 amp NEB Q8H PRN #0 amp 07/17/17 Atorvastatin Ca [Lipitor] 10 mg PO HS tablet 07/17/17 Tramadol HCl [Ultram -] 50 mg PO Q8H PRN #30 tablet MDD 3 07/17/17
--- NOTE | 2017-07-17 16:04 | PROC ---
Arthrocentesis - Arthrocentesis Indication: Inflammation, Steriod Injection Arthrocentesis Site: right: knee Skin prep: Alcohol Anesthesia: 1% Lidocaine Joint Injection of: Depo Medrol Sterile Dressing Applied: Yes
== END 2017-07-17 18:41 | DRG 194 ==
LOC: JER 18:48 → JERBED 22:55 → J6S 07-12 02:22
PROVIDERS: ADMIT Internal Medicine; ATTEND Internal Medicine
PROC: 0S9C3ZZ Drainage of Right Knee Joint, Percutaneous Approach (ICD-10-PCS; principal; 2017-07-17)
PROC: 0S9D3ZZ Drainage of Left Knee Joint, Percutaneous Approach (ICD-10-PCS; 2017-07-17)
PROC: 3E0333Z Introduction of Anti-inflammatory into Peripheral Vein, Percutaneous Approach (ICD-10-PCS; 2017-07-17)
DX: J18.9 Pneumonia, unspecified organism (principal); N39.0 Urinary tract infection, site not specified; J90 Pleural effusion, not elsewhere classified; E78.5 Hyperlipidemia, unspecified; I10 Essential (primary) hypertension; R53.1 Weakness; M17.0 Bilateral primary osteoarthritis of knee
CPT/HCPCS: 36415; 71010-TC; 72050-TC; 73110-TC-RT; 73560-TC-LT; 73560-TC-RT; 80053; 81003; 81015; 82550; 83605; 83735; 84484; 84550; 85025; 85610; 85651; 86850; 86900; 86901; 87040; 87086; 93005; 93010; 94640; 97116-GP; 97161-GP; 99283-25

== ENCOUNTER 2018-03-23 14:43 | Observation (INO) | payer BC, OTHER ==
--- NOTE | 2018-03-23 14:52 | PDOC ---
History of Present Illness - General Stated Complaint: Weakness Time Seen by Provider: 03/23/18 14:48 - History of Present Illness Initial Comments: 03/23/18 15:09 The patient is an 87 year old female with a history of HTN, HLD, Hypothyroidism who presents for evaluation of generalized weakness. The patient is accompanied by family who assist in providing the history. They note that the patient has been experiencing generalized weakness, body aches, and suprapubic abdominal pain over the past several days. They state that the patient has had similar symptoms in the past with UTI and believe that the patient may have another UTI. They state that the patient took a dose of cipro today prior to presentation to the ED for further evaluation. The patient otherwise denies fevers, chills, SOB, chest pain, nausea, vomiting, or changes with bowel movements. Past History - Past Medical History Allergies/Adverse Reactions: Allergies Allergy/AdvReac Type Severity Reaction Status Date / Time No Known Allergies Allergy Verified 03/23/18 14:58 Home Medications: Ambulatory Orders Amlodipine Besylate 5 mg PO DAILY 03/23/18 Ciprofloxacin [Cipro (Restricted To Id)] 250 mg PO BID 03/23/18 Levothyroxine [Synthroid -] 50 mcg PO DAILY 03/23/18 Lisinopril [Prinivil -] 40 mg PO DAILY 03/23/18 Naproxen [Naprosyn] 500 mg PO BID 03/23/18 traMADol HCL [Ultram] 50 mg PO Q8H PRN 03/23/18 HTN: Yes Hypercholesterolemia: Yes - Suicide/Smoking/Psychosocial Hx Smoking History: Never smoked Have you smoked in the past 12 months: No Hx Alcohol Use: No Drug/Substance Use Hx: No Substance Use Type: None Review of Systems - Review of Systems Comments:: 03/23/18 15:12 Constitutional: Generalized weakness, body aches. No fevers, chills, HEENT: No Rhinorrhea, nasal congestion, visual changes Cardiovascular: No chest pain, syncope, palpitations, lightheadedness Respiratory: No Cough, SOB, Hemoptysis, Gastrointestinal: Abdominal pain. No Nausea, Vomiting, Constipation, Diarrhea, Melena Genitourinary: No Dysuria, Frequency, Urgency, Hesitancy, Hematuria, Flank pain Musculoskeletal: No Myalgia, arthralgia Skin: No rashes, itching, bruising, pallor Neurologic: No Headache, Dizziness, Numbness, Weakness, or Tingling Psychiatric: No Hallucinations. No SI or HI *Physical Exam - Physical Exam Comments: 03/23/18 15:13 General Appearance: Nourished. No Apparent Distress HEENT: No Pharyngeal Erythema, Tonsillar Exudate, Tonsillar Erythema Neck: No Cervical Lymphadenopathy Respiratory/Chest: Lungs Clear, Normal Breath Sounds. No Crackles, Rales, Rhonchi, Wheezing Cardiovascular: Regular Rhythm, Regular Rate. No Murmur, Gallops, Rubs Gastrointestinal/Abdominal: Normal Bowel Sounds, Soft. Diffuse discomfort to palpation worse in the suprapubic region. No Guarding, Rebound Musculoskeletal: No CVA Tenderness Extremity: Normal Capillary Refill Integumentary: Normal Color, Dry, Warm Neurologic: Fully Oriented, Alert, Normal Mood/Affect, Normal Response, Heart Score/ECG Review #1 ECG reviewed & interpreted by me at: 15:13 (Ventricularly paced rhythm) General ECG Interpretation: Normal Rate, Normal Intervals, No acute ischemic changes ED Treatment Course - LABORATORY CBC & Chemistry Diagram: 03/23/18 15:32 03/23/18 15:32 Medical Decision Making - Medical Decision Making 03/23/18 15:14 The patient is an 87 year old female with a history of HTN, HLD, Hypothyroidism who presents for evaluation of generalized weakness. Differential includes but is not limited to: Anemia, UTI, Infectious, Metabolic Derangement. Given the patient's history and physical exam, it is possible her symptoms are due to a UTI. However we will obtain a cbc, cmp, lipase, lactate, ua, urine culture to evaluate further for possible etiologies. We will continue to monitor and reassess in the meantime. 03/23/18 18:49 CBC is unremarkable CMP is unremarkable. Lactate is elevated to 2.2 and repeat lactate is 2.4 after iv fluids. UA demonstrates positive nitrites, leuk esterase and elevated wbc to 1388. The patient's symptoms are likely due to UTI despite cipro on outpatient basis. Given the patient's symptomatic UTI, age , and lab results, we believe she requires observation admission for iv antibiotics. We will treat with ceftriaxone here in the ED. We discussed the case with the admitting team who accepted the patient for admission. *DC/Admit/Observation/Transfer Diagnosis at time of Disposition: UTI (urinary tract infection) Qualifiers: Urinary tract infection type: site unspecified Hematuria presence: with hematuria Qualified Code(s): N39.0 - Urinary tract infection, site not specified - Discharge Dispostion Condition at time of disposition: Stable Decision to Admit order: Yes - Referrals - Patient Instructions - Post Discharge Activity
--- NOTE | 2018-03-23 14:54 | PDOC ---
Attending Attestation - Resident Resident Name: Mukesh De Leonel - ED Attending Attestation I have performed the following: I have examined & evaluated the patient, The case was reviewed & discussed with the resident, I agree w/resident's findings & plan, Exceptions are as noted - HPI HPI: 03/23/18 15:01 87y F hx of htn, hl, hypothyroidism presents with genrealized weakness, suprapubic abdominal pain, generalized body aches, denies any fever/chills, dysuria, back pain, cp, sob, cough, diarrhea, no changes in BM. symptoms c/w prior UTI. pt was on cipro on exam pt well apeparing abd soft with minimal suprapubic tenderness no cva tenderness no edema in LE will ck labs, ua will reassesss 03/23/18 17:28 - Medical Decision Making 03/23/18 17:28 pts labs reviewed noted for borderline lactic acid will give ctx
[2018-03-23 15:22] VITALS: BMI 32.5
[2018-03-23] MEDS ORDERED: SODIUM CHLORIDE 500 ML IV STA ×3 (15:34→19:51)
[2018-03-23 15:45] LABS: BASO % 0.4 % (0-2.0); EOS % 3.6 % (0-4.5); HEMATOCRIT 31.2 % (32.4-45.2); HEMOGLOBIN 10.2 GM/dL (10.7-15.3); LYMPH % 14.6 % (8-40); MCH 24.8 pg (25.7-33.7); MCHC 32.6 g/dl (32.0-36.0); MEAN CELL VOLUME 76.2 fl (80-96); MEAN PLT VOLUME 8.7 fl (7.5-11.1); MONO % 6.8 % (3.8-10.2); NEUT % 74.6 % (42.8-82.8); PLATELET COUNT 282 K/MM3 (134-434); RDW 16.3 % (11.6-15.6); WHITE BLOOD COUNT 7.7 K/mm3 (4.0-10.0)
[2018-03-23] MEDS ORDERED: PHENAZOPYRIDINE HCL 100 MG TABLET (FP) PO ONE (15:53)
[2018-03-23] MEDS ORDERED: PHENAZOPYRIDINE HCL 100 MG TABLET (FP) ONE (15:56)
[2018-03-23 15:59] LABS: URINE APPEARANCE TURBID; URINE BILIRUBIN NEGATIVE (<2.0 mg/dL); URINE COLOR AMBER; URINE GLUCOSE (UA) NEGATIVE (NEGATIVE); URINE KETONE NEGATIVE (NEGATIVE); URINE NITRITE POSITIVE (NEGATIVE); URINE UROBILINOGEN NEGATIVE mg/dL (0.2-1.0)
[2018-03-23 16:01] LABS: URINE LEUK ESTERASE 3+ (NEGATIVE); URINE PROTEIN 1+ (NEGATIVE)
[2018-03-23 16:10] LABS: ALBUMIN 2.4 g/dl (3.4-5.0); ANION GAP 10 (8-16); BLOOD UREA NITROGEN 30 mg/dL (7-18); CALCIUM 8.4 mg/dL (8.5-10.1); CHLORIDE 109 mmol/L (98-107); CO2 23 mmol/L (21-32); CREATININE 0.9 mg/dL (0.55-1.02); GLUCOSE,RANDOM 120 mg/dL (74-106); LIPASE 146 U/L (73-393); POTASSIUM 4.6 mmol/L (3.5-5.1); SGOT/AST 21 U/L (15-37); SGPT/ALT 12 U/L (12-78); SODIUM 142 mmol/L (136-145)
[2018-03-23 16:11] LABS: ALK PHOS 63 U/L (45-117); BILIRUBIN,TOTAL 0.3 mg/dL (0.2-1.0); TOT PROT 6.8 g/dl (6.4-8.2)
[2018-03-23 16:27] LABS: URINE BACTERIA MANY /hpf (NONE SEEN); URINE MUCUS FEW
[2018-03-23] MEDS ORDERED: CEFTRIAXONE 1 GM in DEXTROSE 5%-WATER - 100 ML IVPB ONE (16:55)
[2018-03-23] MEDS ORDERED: CEFTRIAXONE 1 GM/50 ML BAG ONE (17:57)
--- NOTE | 2018-03-23 18:44 | HP ---
CHIEF COMPLAINT: painful right knee, weakness, UTI, chills PCP: Dr. Clarke HISTORY OF PRESENT ILLNESS: Patient is a 87 year old female with a significant past medical history of hypertension, hyperlipidemia and pacemaker. She presents to the ED today with worsening generalized weakness for the past few days with lower extremity pain and suprapubic abdominal pain. Patient states that she is s ambulatory with walker at home however today was unable to move and felt profoundly weak. She reports body aches and inability to stand and walk. Patient c/o of chronic right knee pain that is painful to touch. Patient denies any recent trauma or injury. She denies chest pain, headache or dizziness. She denies fever, chills, abdominal pain, nausea, vomit, diarrhea or constipation. ER course was notable for: (1) right swollen painful knee, will xray (2) UA+protein, +blood, +3 leuk est, 1388 wbc (3) lactic acid 2.4 Recent Travel: PAST MEDICAL HISTORY: htn, hld PAST SURGICAL HISTORY: Social History: Smoking: n/a Alcohol:n/a Drugs: n/a Family History: Allergies No Known Allergies Allergy (Verified 03/23/18 14:58) HOME MEDICATIONS: Home Medications Medication Instructions Recorded Amlodipine Besylate 5 mg PO DAILY 03/23/18 Ciprofloxacin [Cipro (Restricted 250 mg PO BID 03/23/18 To Id)] Levothyroxine [Synthroid -] 50 mcg PO DAILY 03/23/18 Lisinopril [Prinivil -] 40 mg PO DAILY 03/23/18 Naproxen [Naprosyn] 500 mg PO BID 03/23/18 traMADol HCL [Ultram] 50 mg PO Q8H PRN 03/23/18 PHYSICAL EXAMINATION Vital Signs - 24 hr 03/23/18 03/23/18 14:55 18:05 Temperature 98.6 F 98.1 F Pulse Rate 60 Pulse Rate [ 75 Left Radial] Respiratory 14 14 Rate Blood Pressure 106/59 Blood Pressure 146/88 [Right Arm] O2 Sat by Pulse 96 100 Oximetry (%) GENERAL: Awake, alert, and fully oriented, in no acute distress. HEAD: Normal with no signs of trauma. EYES: Pupils equal, round and reactive to light, extraocular movements intact, sclera anicteric, conjunctiva clear. No lid lag. EARS, NOSE, THROAT: Ears normal, nares patent, oropharynx clear without exudates. Moist mucous membranes. NECK: Normal range of motion, supple without lymphadenopathy, JVD, or masses. LUNGS: Breath sounds equal, clear to auscultation bilaterally. No wheezes, and no crackles. No accessory muscle use. HEART: Regular rate and rhythm ABDOMEN: Soft, nontender, not distended, normoactive bowel sounds, no guarding, no rebound, no masses. No hepatomegaly or splenomegaly. MUSCULOSKELETAL: Normal range of motion at all joints. No bony deformities or tenderness. No CVA tenderness. UPPER EXTREMITIES: No clubbing. No peripheral edema. LOWER EXTREMITIES: No calf tenderness. No peripheral edema. NEUROLOGICAL: Normal speech. PSYCHIATRIC: Cooperative. Good eye contact. Appropriate mood and affect. SKIN: Warm, dry, normal turgor, no rashes or lesions noted, normal capillary refill. Laboratory Results - last 24 hr 03/23/18 03/23/18 03/23/18 15:32 15:32 15:32 WBC 7.7 RBC 4.10 Hgb 10.2 L Hct 31.2 L MCV 76.2 L MCH 24.8 L MCHC 32.6 RDW 16.3 H Plt Count 282 MPV 8.7 Absolute Neuts (auto) 5.7 Neutrophils % 74.6 Lymphocytes % 14.6 Monocytes % 6.8 Eosinophils % 3.6 Basophils % 0.4 Nucleated RBC % 0 Sodium 142 Potassium 4.6 Chloride 109 H Carbon Dioxide 23 Anion Gap 10 BUN 30 H Creatinine 0.9 Creat Clearance w eGFR 58.95 Random Glucose 120 H Lactic Acid 2.2 H* Calcium 8.4 L Total Bilirubin 0.3 AST 21 ALT 12 Alkaline Phosphatase 63 Total Protein 6.8 Albumin 2.4 L Lipase 146 Urine Color Urine Appearance Urine pH Ur Specific [place] Urine Protein Urine Glucose (UA) Urine Ketones Urine Blood Urine Nitrite Urine Bilirubin Urine Urobilinogen Ur Leukocyte Esterase Urine WBC (Auto) Urine RBC (Auto) Urine Bacteria Urine Mucus 03/23/18 03/23/18 15:50 17:17 WBC RBC Hgb Hct MCV MCH MCHC RDW Plt Count MPV Absolute Neuts (auto) Neutrophils % Lymphocytes % Monocytes % Eosinophils % Basophils % Nucleated RBC % Sodium Potassium Chloride Carbon Dioxide Anion Gap BUN Creatinine Creat Clearance w eGFR Random Glucose Lactic Acid 2.4 H* Calcium Total Bilirubin AST ALT Alkaline Phosphatase Total Protein Albumin Lipase Urine Color [place] Urine Appearance Turbid Urine pH 5.0 Ur Specific [place] 1.018 Urine Protein 1+ H Urine Glucose (UA) Negative Urine Ketones Negative Urine Blood 2+ H Urine Nitrite Positive Urine Bilirubin Negative Urine Urobilinogen Negative Ur Leukocyte Esterase 3+ H Urine WBC (Auto) 1388 Urine RBC (Auto) 14 Urine Bacteria Many Urine Mucus Few ASSESSMENT/PLAN: Patient is a 87 year old female with a significant past medical history of hypertension, hyperlipidemia and pacemaker. She presents to the ED today with worsening generalized weakness for the past few days with lower extremity pain and suprapubic abdominal pain. Patient states that she is s ambulatory with walker at home however today was unable to move and felt profoundly weak. She reports body aches and inability to stand and walk. Patient c/o of chronic right knee pain that is painful to touch. Patient denies any recent trauma or injury. She denies chest pain, headache or dizziness. She denies fever, chills, abdominal pain, nausea, vomit, diarrhea or constipation. ID Rule out acute infection. WBC within normal limits, afebrile. Has weakness and increased fatigue. Blood and urine cultures pending. Has +UTI per UA with elevated urine WBC. Given Ceftriaxone in ED. Will continue daily until UC results/sensitivities. Generalized weakness. LIkely secondary to UTI. Monitor for improvement. Will order TSH. Lactic acidosis: fluid boluses and lactic acids q 4. Card: Hypertension: monitor BP, continue home medications Ortho Right knee pain: Will xray and apply Lidoderm patch. Physical therapy. Will monitor labs, vitals and order TSH. Please confirm home medications. fen iv hydration monitor labs low salt diet Prophy: SCDs Physical therapy Visit type - Emergency Visit Emergency Visit: Yes ED Registration Date: 03/23/18 Care time: The patient presented to the Emergency Department on the above date and was hospitalized for further evaluation of their emergent condition. - New Patient This patient is new to me today: Yes Date on this admission: 03/23/18 - Critical Care Critical Care patient: No Hospitalist Screening - Colonoscopy Questionnaire Colonoscopy Questionnaire: Colonoscopy Questionnaire - Patient: 50 - 75 years old and never had a screening colonoscopy: Unknown History of colon or rectal polyps, or CA: Unknown History of IBD, Crohn's disease or UC: Unknown History of abdominal radiation therapy as a child: Unknown - Relative: 1 with colon or rectal CA, or polyps at age 60 or younger: Unknown Colon or rectal CA diagnosed at age 45 or younger: Unknown Multiple relatives with colon or rectal CA: Unknown - Outcome: Screening Result: Negative Screen
[2018-03-23] MEDS ORDERED: ACETAMINOPHEN 325 MG TABLET (FP) PO PRN (18:48)
[2018-03-23] MEDS ORDERED: SODIUM CHLORIDE 1,000 ML IV SCH ×2 (19:00→19:52)
[2018-03-23] MEDS: traMADol HCL 50 MG TABLET PO PRN (20:11)
[2018-03-24] MEDS: traMADol HCL 50 MG TABLET PO PRN ×3 (05:59→21:41)
[2018-03-24] MEDS ORDERED: LEVOTHYROXINE NA 50 MCG TABLET (FP) PO SCH (07:00)
[2018-03-24 07:45] LABS: HEMATOCRIT 29.2 % (32.4-45.2); HEMOGLOBIN 9.6 GM/dL (10.7-15.3); MCHC 32.8 g/dl (32.0-36.0); MEAN CELL VOLUME 76.1 fl (80-96); MEAN PLT VOLUME 8.9 fl (7.5-11.1); PLATELET COUNT 252 K/MM3 (134-434); RBC 3.83 M/mm3 (3.60-5.2); RDW 16.6 % (11.6-15.6); WHITE BLOOD COUNT 9.6 K/mm3 (4.0-10.0)
[2018-03-24 08:20] LABS: ALBUMIN 2.2 g/dl (3.4-5.0); ALK PHOS 59 U/L (45-117); ANION GAP 8 (8-16); BILIRUBIN,TOTAL 0.3 mg/dL (0.2-1.0); BLOOD UREA NITROGEN 18 mg/dL (7-18); CALCIUM 8.2 mg/dL (8.5-10.1); CHLORIDE 109 mmol/L (98-107); CO2 23 mmol/L (21-32); CREATININE 0.5 mg/dL (0.55-1.02); GLUCOSE,RANDOM 78 mg/dL (74-106); SGOT/AST 19 U/L (15-37); SGPT/ALT 11 U/L (12-78); SODIUM 140 mmol/L (136-145); TOT PROT 6.4 g/dl (6.4-8.2)
[2018-03-24] MEDS ORDERED: cefTRIAXone SODIUM 1 GM VIAL ONE (09:58)
[2018-03-24] MEDS ORDERED: DEXTROSE 5%-WATER - 50 ML IVPB ONE (09:59)
[2018-03-24] MEDS: LISINOPRIL 20 MG TABLET (FP) PO SCH (10:15)
[2018-03-24] MEDS: LIDOCAINE 5% TOPICAL PATCH TP SCH ×2 (10:15→12:15)
[2018-03-24] MEDS: amLODIPine BESYLATE 5 MG TABLET (FP) PO SCH (10:15)
--- NOTE | 2018-03-24 11:22 | PN ---
Progress Note, Physician Chief Complaint: spoke with Hospitalist pt c/o B/L knee pain - left >right she has generalized body pain Spoke with daughter who requests for pain management pt is mostly bedbound- has a BUTTON BRADDER transfers from bed to chair with assistance - Current Medication List Current Medications: Active Medications Acetaminophen (Tylenol -) 650 mg PO Q6H PRN PRN Reason: PAIN LEVEL 4 - 6 Amlodipine Besylate (Norvasc -) 5 mg PO DAILY [facility] Last Admin: 03/24/18 10:15 Dose: 5 mg Artificial Tears (Artificial Tears) 1 drop OU BID PRN PRN Reason: dry eyes Ceftriaxone Sodium 1 gm/ (Dextrose) 50 mls @ 100 mls/hr IVPB DAILY [facility]; Protocol Sodium Chloride (Normal Saline -) 1,000 mls @ 75 mls/hr IV ASDIR [facility] Stop: 03/24/18 18:47 Last Admin: 03/23/18 21:20 Dose: 75 mls/hr Levothyroxine Sodium (Synthroid -) 75 mcg PO 0700 [facility] Lidocaine (Lidoderm Patch -) 1 patch TP DAILY [facility] Last Admin: 03/24/18 10:15 Dose: 1 patch Lidocaine (Lidoderm Patch -) 1 patch TP DAILY [facility] Lisinopril (Prinivil) 40 mg PO DAILY [facility] Last Admin: 03/24/18 10:15 Dose: 40 mg Miscellaneous (Lidoderm Patch Removal) 1 each MC DAILY@2200 [facility] Miscellaneous (Lidoderm Patch Removal) 1 each MC DAILY@2200 [facility] Tramadol HCl (Ultram -) 50 mg PO Q6H PRN PRN Reason: PAIN LEVEL 7 - 10 - Objective Vital Signs: Vital Signs Temperature 98.2 F 03/24/18 10:19 Pulse Rate 50 L 03/24/18 10:09 Respiratory Rate 18 03/24/18 10:09 Blood Pressure 125/52 03/24/18 10:09 O2 Sat by Pulse Oximetry (%) 100 03/24/18 03:55 Constitutional: Yes: No Distress, Calm Cardiovascular: Yes: Regular Rate and Rhythm Respiratory: Yes: CTA Bilaterally Gastrointestinal: Yes: Normal Bowel Sounds, Soft. No: Tenderness Musculoskeletal: Yes: Joint Stiffness, Joint Swelling (left) Edema: No Labs: CBC, BMP 03/24/18 06:20 03/24/18 06:20 Problem List - Problems (1) UTI (urinary tract infection) Code(s): N39.0 - URINARY TRACT INFECTION, SITE NOT SPECIFIED Qualifiers: Urinary tract infection type: site unspecified Hematuria presence: with hematuria Qualified Code(s): N39.0 - Urinary tract infection, site not specified; R31.9 - Hematuria, unspecified (2) Hyperlipidemia Code(s): E78.5 - HYPERLIPIDEMIA, UNSPECIFIED (3) Functional quadriplegia Code(s): R53.2 - FUNCTIONAL QUADRIPLEGIA (4) Neuropathy Code(s): G62.9 - POLYNEUROPATHY, UNSPECIFIED (5) Arthritis Code(s): M19.90 - UNSPECIFIED OSTEOARTHRITIS, UNSPECIFIED SITE (6) Hypertension Code(s): I10 - ESSENTIAL (PRIMARY) HYPERTENSION Qualifiers: Hypertension type: essential hypertension Qualified Code(s): I10 - Essential (primary) hypertension Assessment/Plan PLAN IV antibiotics pain control Add Neurontin Pain management eval daughter does not want STR /[facility] assisted living facility
[2018-03-24] MEDS: CEFTRIAXONE 1 GM in DEXTROSE 5%-WATER - 50 ML IVPB SCH (14:22)
[2018-03-24] MEDS: ARTIFICIAL TEARS (POLYVINYL ALCOHOL 1.4%) OPTH DROPS OU PRN (18:32)
[2018-03-24] MEDS: CARBAMIDE PEROXIDE 6.5% OTIC 15 ML BOTTLE AS PRN (18:32)
[2018-03-24] MEDS: GABAPENTIN 100 MG CAPSULE (FP) PO SCH (21:38)
[2018-03-24] MEDS: LIDOCAINE PATCH REMOVAL MC SCH ×2 (21:39)
[2018-03-25] MEDS: GABAPENTIN 100 MG CAPSULE (FP) PO SCH ×3 (06:29→21:34)
[2018-03-25] MEDS: LEVOTHYROXINE NA 50 MCG TABLET (FP) PO SCH (06:29)
[2018-03-25] MEDS ORDERED: cefTRIAXone SODIUM 1 GM VIAL ONE (09:05)
[2018-03-25] MEDS ORDERED: DEXTROSE 5%-WATER - 50 ML IVPB ONE (09:05)
[2018-03-25] MEDS: LISINOPRIL 20 MG TABLET (FP) PO SCH (09:11)
[2018-03-25] MEDS: amLODIPine BESYLATE 5 MG TABLET (FP) PO SCH (09:11)
[2018-03-25] MEDS: LIDOCAINE 5% TOPICAL PATCH TP SCH ×2 (09:11)
--- NOTE | 2018-03-25 10:12 | EKG ---
Test Reason : Blood Pressure : / mmHG Vent. Rate : 071 BPM Atrial Rate : 081 BPM P-R Int : 000 ms QRS Dur : 168 ms QT Int : 450 ms P-R-T Axes : 048 267 070 degrees QTc Int : 489 ms Ventricular-paced rhythm WITH OCCASIONAL PREMATURE VENTRICULAR COMPLEXES ABNORMAL ECG WHEN COMPARED WITH ECG OF 11-JUL-2017 21:31, PREMATURE VENTRICULAR COMPLEXES ARE NOW PRESENT VENT. RATE HAS INCREASED BY 8 BPM Confirmed by VÍCTOR HUGGINS, BERNADETTE ([id number]) on 03/25/2018 10:12:30 AM Referred By: Confirmed By:BERNADETTE RENEE MD
[2018-03-25] MEDS: CEFTRIAXONE 1 GM in DEXTROSE 5%-WATER - 50 ML IVPB SCH (10:47)
[2018-03-25] MEDS ORDERED: PT OWN MED DRAWER 7, Y5N ONE (14:18)
[2018-03-25] MEDS: CARBAMIDE PEROXIDE 6.5% OTIC 15 ML BOTTLE AS PRN (14:19)
[2018-03-25] MEDS: ARTIFICIAL TEARS (POLYVINYL ALCOHOL 1.4%) OPTH DROPS OU PRN (14:20)
--- NOTE | 2018-03-25 15:47 | PN ---
Progress Note (short form) - Note Progress Note: patient seen and examined. chart reviewed. Chief complaint pain in the joints--arms and legs Daughter at bedside Rheumatoid factor very high Afebrile Vital Signs Temp 99.1 F 03/25/18 13:22 Pulse 57 L 03/25/18 13:22 Resp 18 03/25/18 13:22 BP 122/69 03/25/18 13:22 Pulse Ox 98 03/25/18 02:00 Intake & Output 03/24/18 03/25/18 03/25/18 23:59 11:59 23:59 Intake Total 890 50 Balance 890 50 Intake: IV 550 Normal Saline - 1,000 ml 550 @ 75 mls/hr IV ASDIR [facility] Rx#:[id number] IVPB 100 50 CBI Intake 240 Other: Voiding Method Incontinent Incontinent # Unmeasured Voids Straight Cath 2 2 2 Bowel Movement No Active Medications Acetaminophen (Tylenol -) 650 mg PO Q6H PRN PRN Reason: PAIN LEVEL 4 - 6 Amlodipine Besylate (Norvasc -) 5 mg PO DAILY [facility] Last Admin: 03/25/18 09:11 Dose: 5 mg Artificial Tears (Artificial Tears) 1 drop OU BID PRN PRN Reason: dry eyes Last Admin: 03/25/18 14:20 Dose: 1 drop Carbamide Perox/Anhydrous Glycerin (Debrox -) 5 drop BID PRN PRN Reason: ear wax Last Admin: 03/25/18 14:19 Dose: 5 drop Gabapentin (Neurontin -) 100 mg PO TID [facility] Last Admin: 03/25/18 14:19 Dose: 100 mg Ceftriaxone Sodium 1 gm/ (Dextrose) 50 mls @ 100 mls/hr IVPB DAILY [facility]; Protocol Last Admin: 03/25/18 10:47 Dose: 100 mls/hr Levothyroxine Sodium (Synthroid -) 75 mcg PO 0700 [facility] Last Admin: 03/25/18 06:29 Dose: 75 mcg Lidocaine (Lidoderm Patch -) 1 patch TP DAILY [facility] Last Admin: 03/25/18 09:11 Dose: 1 patch Lidocaine (Lidoderm Patch -) 1 patch TP DAILY [facility] Last Admin: 03/25/18 09:11 Dose: 1 patch Lisinopril (Prinivil) 40 mg PO DAILY [facility] Last Admin: 03/25/18 09:11 Dose: 40 mg Miscellaneous (Lidoderm Patch Removal) 1 each MC DAILY@2200 [facility] Last Admin: 03/24/18 21:39 Dose: 1 each Miscellaneous (Lidoderm Patch Removal) 1 each MC DAILY@2200 [facility] Last Admin: 03/24/18 21:39 Dose: 1 each Tramadol HCl (Ultram -) 50 mg PO Q6H PRN PRN Reason: PAIN LEVEL 7 - 10 Last Admin: 03/24/18 21:41 Dose: 50 mg CBC, BMP 03/24/18 06:20 03/24/18 06:20 Laboratory Results - last 24 hr 03/25/18 08:10 ESR 8 Microbiology 03/23/18 15:50 Urine Culture - Preliminary Urine - Urine Clean Catch Non Lactose Fermenting Gnb 03/23/18 16:58 Blood Culture - Preliminary Blood - Peripheral Venous NO GROWTH OBTAINED AFTER 24 HOURS, INCUBATION TO CONTINUE FOR 4 DAYS. 03/23/18 16:50 Blood Culture - Preliminary Blood - Peripheral Venous NO GROWTH OBTAINED AFTER 24 HOURS, INCUBATION TO CONTINUE FOR 4 DAYS. physical exam Constitutional: Yes: No Distress, Calm/ awake Cardiovascular: Yes: Regular Rate and Rhythm Respiratory: Yes: CTA Bilaterally Gastrointestinal: Yes: Normal Bowel Sounds, Soft. No: Tenderness Musculoskeletal: Yes: Joint Stiffness, Joint Swelling --hands Edema: No neuro--alert and awake Problem List - Problems (1) UTI (urinary tract infection) Code(s): N39.0 - URINARY TRACT INFECTION, SITE NOT SPECIFIED Qualifiers: Urinary tract infection type: site unspecified Hematuria presence: with hematuria Qualified Code(s): N39.0 - Urinary tract infection, site not specified; R31.9 - Hematuria, unspecified (2) Hyperlipidemia Code(s): E78.5 - HYPERLIPIDEMIA, UNSPECIFIED (3) Functional quadriplegia Code(s): R53.2 - FUNCTIONAL QUADRIPLEGIA (4) Neuropathy Code(s): G62.9 - POLYNEUROPATHY, UNSPECIFIED (5) Arthritis Code(s): M19.90 - UNSPECIFIED OSTEOARTHRITIS, UNSPECIFIED SITE (6) Hypertension Code(s): I10 - ESSENTIAL (PRIMARY) HYPERTENSION Qualifiers: Hypertension type: essential hypertension Qualified Code(s): I10 - Essential (primary) hypertension Assessment/Plan discussed with patient's daughter in detail Continue IV antibiotics Will consult rheumatology Continue other medications Physical therapy Will follow Follow-up cultures daughter does not want STR /[facility] assisted [facility] facility
[2018-03-25] MEDS: LIDOCAINE PATCH REMOVAL MC SCH ×2 (21:34)
[2018-03-26] MEDS: LEVOTHYROXINE NA 50 MCG TABLET (FP) PO SCH (06:54)
[2018-03-26] MEDS: GABAPENTIN 100 MG CAPSULE (FP) PO SCH ×3 (06:56→21:47)
--- NOTE | 2018-03-26 09:20 | CONSULT ---
Consult Consult Specialty:: Rheumatology - History of Present Illness History of Present Illness: 87 year old female with a history of HTN, HLD, Hypothyroidism admitted withy difficulty in walking, diffuse aches and pains and suprapubic abdominal pain. HPI. The patient is a poor historian, information from her daughter. The patient has a 4 year history of pain in both knees related to activity. The pain has been progressive in the last year, she walks with a walker and recently she cannot walk. She reports a 4 month history of diffuse pain, manly in the morning. Laboratory work-up revealed ESR of 8, creatinine 0.9, LFT normal. urinalysis with protein +, blood 2+ and LE 3+. Rheumatoid factor 1180. TSH 5.1 K rays of the right knee in this admission was not weight wearing. X-rays from 07/12/17 weight bearing of the knees, revealed, in the right, severe narrowing of the lateral compartment with bone on bone contact and chondrocalcinosis. Left knee: severe narrowing of both, the medial and lateral compartments with bone on bone contact. - History Source History Provided By: Patient, Family Member, Medical Record Limitations to Obtaining History: No Limitations - Past Medical History Cardio/Vascular: Yes: HTN, Hyperlipdemia, Other (s/p PPM - h/p AVblock) ...: No Rheumatology: Yes: Other (arthritis) - Past Surgical History Past Surgical History: Yes: None - Alcohol/Substance Use Hx Alcohol Use: No - Smoking History Smoking history: Never smoked Have you smoked in the past 12 months: No Home Medications - Allergies Allergies/Adverse Reactions: Allergies Allergy/AdvReac Type Severity Reaction Status Date / Time No Known Allergies Allergy Verified 03/23/18 14:58 - Home Medications Home Medications: Ambulatory Orders Amlodipine Besylate 5 mg PO DAILY 03/23/18 Ciprofloxacin [Cipro (Restricted To Id)] 250 mg PO BID 03/23/18 Levothyroxine [Synthroid -] 50 mcg PO DAILY 03/23/18 Lisinopril [Prinivil -] 40 mg PO DAILY 03/23/18 Naproxen [Naprosyn] 500 mg PO BID 03/23/18 traMADol HCL [Ultram] 50 mg PO Q8H PRN 03/23/18 Review of Systems - Review of Systems Constitutional: reports: Malaise, Weakness Eyes: reports: No Symptoms HENT: reports: No Symptoms Neck: reports: No Symptoms Cardiovascular: reports: No Symptoms Respiratory: reports: No Symptoms Gastrointestinal: reports: No Symptoms Musculoskeletal: reports: Other (See HPI) Integumentary: reports: No Symptoms Physical Exam Vital Signs: Vital Signs Temperature 98.9 F 03/26/18 06:00 Pulse Rate 50 L 03/26/18 06:00 Respiratory Rate 18 03/26/18 06:00 Blood Pressure 131/60 03/26/18 06:00 O2 Sat by Pulse Oximetry (%) 97 03/26/18 06:00 Constitutional: Yes: Moderate Distress Eyes: Yes: WNL HENT: Yes: WNL Neck: Yes: WNL Cardiovascular: Yes: WNL Respiratory: Yes: Other (Few coarse crackles in both bases.) Gastrointestinal: Yes: WNL, Hyperactive Bowel Sounds Musculoskeletal: Yes: Other (Tenderness and swelling in camila right hand in the 2nd, 3rd and 5th MCPs andall PIPs. In the left hand 2nd to 5th MCPs and all PIPs. Mild tenderness in both knees.) Labs: CBC, BMP 03/24/18 06:20 03/24/18 06:20 Laboratory Tests 03/23/18 03/23/18 03/24/18 15:32 15:50 06:20 ESR Calcium 8.4 L Total Bilirubin 0.3 AST 21 ALT 12 Alkaline Phosphatase 63 Total Protein 6.8 Albumin 2.4 L Lipase 146 TSH 5.11 H Urine Color Grace Urine Appearance Turbid Urine pH 5.0 Ur Specific Cherry Log 1.018 Urine Protein 1+ H Urine Glucose (UA) Negative Urine Ketones Negative Urine Blood 2+ H Urine Nitrite Positive Urine Bilirubin Negative Urine Urobilinogen Negative Ur Leukocyte Esterase 3+ H Urine WBC (Auto) 1388 Urine RBC (Auto) 14 Urine Bacteria Many Urine Mucus Few Rheumatoid Factor 1180.0 H 03/25/18 08:10 ESR 8 Calcium Total Bilirubin AST ALT Alkaline Phosphatase Total Protein Albumin Lipase TSH Urine Color Urine Appearance Urine pH Ur Specific Cherry Log Urine Protein Urine Glucose (UA) Urine Ketones Urine Blood Urine Nitrite Urine Bilirubin Urine Urobilinogen Ur Leukocyte Esterase Urine WBC (Auto) Urine RBC (Auto) Urine Bacteria Urine Mucus Rheumatoid Factor Problem List - Problems (1) Osteoarthritis of knees, bilateral Assessment/Plan: Osteoarthritis of both knees with severe damage. The patient probably will not benefit from steroid injections and she probably is not a candidate for total joint replacement. Management with analgesia. Code(s): M17.0 - BILATERAL PRIMARY OSTEOARTHRITIS OF KNEE (2) Rheumatoid arthritis Assessment/Plan: Active arthritis in multiple joints in hands and rheumatoid factor positive at a high titer. Probable rheumatoid arthritis, rule out paraproteinemia. Plan: JOHANNY, CCP X ray of hands. Continue same medications./ Code(s): M06.9 - RHEUMATOID ARTHRITIS, UNSPECIFIED
--- NOTE | 2018-03-26 10:18 | PN ---
Progress Note (short form) - Note Progress Note: pt seen/ examined. overall condition same rheumatology consult noted / aprreciated no meds recommended at present x rays hands ordered Vital Signs Temp 98.9 F 03/26/18 06:00 Pulse 50 L 03/26/18 06:00 Resp 18 03/26/18 06:00 BP 131/60 03/26/18 06:00 Pulse Ox 97 03/26/18 06:00 Intake & Output 03/25/18 03/25/18 03/26/18 11:59 23:59 11:59 Intake Total 50 450 0 Balance 50 450 0 Intake: IVPB 50 Oral 450 0 Other: Voiding Method Incontinent Incontinent Incontinent # Unmeasured Voids Straight Cath 2 2 2 Bowel Movement No Yes Active Medications Acetaminophen (Tylenol -) 650 mg PO Q6H PRN PRN Reason: PAIN LEVEL 4 - 6 Amlodipine Besylate (Norvasc -) 5 mg PO DAILY [facility] Last Admin: 03/25/18 09:11 Dose: 5 mg Artificial Tears (Artificial Tears) 1 drop OU BID PRN PRN Reason: dry eyes Last Admin: 03/25/18 14:20 Dose: 1 drop Carbamide Perox/Anhydrous Glycerin (Debrox -) 5 drop BID PRN PRN Reason: ear wax Last Admin: 03/25/18 14:19 Dose: 5 drop Gabapentin (Neurontin -) 100 mg PO TID [facility] Last Admin: 03/26/18 06:56 Dose: 100 mg Ceftriaxone Sodium 1 gm/ (Dextrose) 50 mls @ 100 mls/hr IVPB DAILY [facility]; Protocol Last Admin: 03/25/18 10:47 Dose: 100 mls/hr Levothyroxine Sodium (Synthroid -) 75 mcg PO 0700 [facility] Last Admin: 03/26/18 06:54 Dose: 75 mcg Lidocaine (Lidoderm Patch -) 1 patch TP DAILY [facility] Last Admin: 03/25/18 09:11 Dose: 1 patch Lidocaine (Lidoderm Patch -) 1 patch TP DAILY [facility] Last Admin: 03/25/18 09:11 Dose: 1 patch Lisinopril (Prinivil) 40 mg PO DAILY [facility] Last Admin: 03/25/18 09:11 Dose: 40 mg Miscellaneous (Lidoderm Patch Removal) 1 each MC DAILY@2200 [facility] Last Admin: 03/25/18 21:34 Dose: 1 each Miscellaneous (Lidoderm Patch Removal) 1 each MC DAILY@2200 [facility] Last Admin: 03/25/18 21:34 Dose: 1 each Tramadol HCl (Ultram -) 50 mg PO Q6H PRN PRN Reason: PAIN LEVEL 7 - 10 Last Admin: 03/24/18 21:41 Dose: 50 mg CBC, BMP 03/24/18 06:20 03/24/18 06:20 Microbiology 03/23/18 15:50 Urine Culture - Final Urine - Urine Clean Catch Escherichia Coli 03/23/18 16:58 Blood Culture - Preliminary Blood - Peripheral Venous NO GROWTH OBTAINED AFTER 48 HOURS, INCUBATION TO CONTINUE FOR 3 DAYS. 03/23/18 16:50 Blood Culture - Preliminary Blood - Peripheral Venous NO GROWTH OBTAINED AFTER 48 HOURS, INCUBATION TO CONTINUE FOR 3 DAYS. physical exam Constitutional: Yes: No Distress, Calm/ awake Cardiovascular: Yes: Regular Rate and Rhythm Respiratory: Yes: CTA Bilaterally Gastrointestinal: Yes: Normal Bowel Sounds, Soft. No: Tenderness Musculoskeletal: Yes: Joint Stiffness, Joint Swelling --hands Edema: No neuro--alert and awake Assessment/Plan Condition same Continue other medications Physical therapy Will follow
[2018-03-26] MEDS ORDERED: cefTRIAXone SODIUM 1 GM VIAL ONE (11:44)
[2018-03-26] MEDS ORDERED: DEXTROSE 5%-WATER - 50 ML IVPB ONE (11:45)
[2018-03-26] MEDS ORDERED: methylPREDNISolone ACET (DEPO) 40 MG/1 ML VIAL IM ONE (12:00)
[2018-03-26] MEDS: LIDOCAINE 5% TOPICAL PATCH TP SCH ×2 (12:03→12:04)
[2018-03-26] MEDS: amLODIPine BESYLATE 5 MG TABLET (FP) PO SCH (12:05)
[2018-03-26] MEDS: CEFTRIAXONE 1 GM in DEXTROSE 5%-WATER - 50 ML IVPB SCH ×2 (12:05→20:20)
[2018-03-26] MEDS: LISINOPRIL 20 MG TABLET (FP) PO SCH (12:05)
[2018-03-26] MEDS: traMADol HCL 50 MG TABLET PO PRN (21:46)
[2018-03-26] MEDS: LIDOCAINE PATCH REMOVAL MC SCH ×2 (21:47→22:11)
[2018-03-27] MEDS: GABAPENTIN 100 MG CAPSULE (FP) PO SCH ×2 (06:10→14:00)
[2018-03-27] MEDS: LEVOTHYROXINE NA 50 MCG TABLET (FP) PO SCH (06:11)
--- NOTE | 2018-03-27 08:37 | HOSP ---
Subjective - Review of Symptoms Events since last encounter: Responded to RN's request to see patient. Concern for area of apparent swelling upper left back. SUBJ: :Patient seen and examined. Patient denies any type of pain or discomfort. OBJ: Vital Signs - 24 hr 03/26/18 03/26/18 03/26/18 10:00 14:00 15:33 Temperature 98.6 F 99.4 F Pulse Rate 85 53 L Respiratory 18 18 18 Rate Blood Pressure 145/75 119/56 O2 Sat by Pulse 97 Oximetry (%) A&Ox3, no apparent distress Lungs: CTA, breathing unlabored Left upper back: large ~10 circular area of fluctance with palpable lobulation; slippage sign; no erythema, no warmth Assessment Likely lipoma US ordered Physical Examination Vital Signs: Vital Signs Temperature 98.1 F 03/27/18 06:30 Pulse Rate 103 H 03/27/18 06:30 Respiratory Rate 20 03/27/18 06:30 Blood Pressure 146/86 03/27/18 06:30 O2 Sat by Pulse Oximetry (%) 97 03/27/18 05:00 Labs: CBC, BMP 03/24/18 06:20 03/24/18 06:20
[2018-03-27] MEDS ORDERED: cefTRIAXone SODIUM 1 GM VIAL ONE (08:57)
[2018-03-27] MEDS ORDERED: DEXTROSE 5%-WATER - 50 ML IVPB ONE (08:57)
[2018-03-27] MEDS: CEFTRIAXONE 1 GM in DEXTROSE 5%-WATER - 50 ML IVPB SCH (09:32)
[2018-03-27] MEDS: LIDOCAINE 5% TOPICAL PATCH TP SCH ×2 (09:33→09:34)
[2018-03-27] MEDS: amLODIPine BESYLATE 5 MG TABLET (FP) PO SCH (09:34)
[2018-03-27] MEDS: LISINOPRIL 20 MG TABLET (FP) PO SCH (09:34)
--- NOTE | 2018-03-27 10:26 | PN ---
Progress Note (short form) - Note Progress Note: The patient reports fatigue and significant stiffness in hands. Yesterday she received Depomedrol 40 mg/d, It is not clear is he had any response. P/E in mild distress. Lungs clear. MSK. No change in joint count. She has tenderness and swelling of MCPs and PIPs. X rays of the hands revealed significant periarticular osteopenia (suggestive of inflammatory arthritis), degenerative changes in PIPs and DIPs. No changes suggestive of rheumatoid arthritis ( no narrowing in carpus or MCPs. No erosions). Laboratory work-up: CCP and IF pending. Impression. Osteoarthritis in knees with severe damage. Probable sero- positive rheumatoid arthritis with disease very active. Plan: Start Naproxen 375 mg BID, Prednisone 5 mg/d, Methotrexate 15 mg once per week, Folic acid 1 mg/d. Problem List - Problems (1) Osteoarthritis of knees, bilateral Code(s): M17.0 - BILATERAL PRIMARY OSTEOARTHRITIS OF KNEE (2) Rheumatoid arthritis Code(s): M06.9 - RHEUMATOID ARTHRITIS, UNSPECIFIED
[2018-03-27] MEDS ORDERED: predniSONE 5 MG TABLET (UD) PO SCH (10:30)
[2018-03-27] MEDS ORDERED: NAPROXEN 375 MG TABLET (FP) PO SCH (10:45)
[2018-03-27] MEDS ORDERED: FOLIC ACID 1 MG TABLET (FP) PO SCH (12:00)
[2018-03-27 13:25] LABS: URINE APPEARANCE CLOUDY; URINE BILIRUBIN NEGATIVE (<2.0 mg/dL); URINE COLOR LTYELLOW; URINE GLUCOSE (UA) 1+ (NEGATIVE); URINE KETONE NEGATIVE (NEGATIVE); URINE NITRITE NEGATIVE (NEGATIVE); URINE PROTEIN NEGATIVE (NEGATIVE); URINE UROBILINOGEN NEGATIVE mg/dL (0.2-1.0)
[2018-03-27 13:28] LABS: URINE LEUK ESTERASE 3+ (NEGATIVE)
[2018-03-27 13:29] LABS: EPI CELLS RARE /HPF (FEW); URINE BACTERIA RARE /hpf (NONE SEEN); URINE MUCUS RARE
[2018-03-27] MEDS ORDERED: METHOTREXATE 2.5 MG TABLET PO SCH (13:30)
--- NOTE | 2018-03-27 13:54 | DS ---
Physical Examination Vital Signs: Vital Signs Temperature 98.6 F 03/27/18 09:30 Pulse Rate 75 03/27/18 09:30 Respiratory Rate 18 03/27/18 09:30 Blood Pressure 127/57 03/27/18 09:30 O2 Sat by Pulse Oximetry (%) 97 03/27/18 05:00 Constitutional: Yes: No Distress, Calm Cardiovascular: Yes: Regular Rate and Rhythm Respiratory: Yes: CTA Bilaterally Gastrointestinal: Yes: Normal Bowel Sounds, Soft. No: Tenderness Edema: No Labs: CBC, BMP 03/24/18 06:20 03/24/18 06:20 Discharge Summary Reason For Visit: URINARY TRACT INFECTION Current Active Problems Arthritis (Acute) Functional quadriplegia (Acute) Neuropathy (Acute) Osteoarthritis of knees, bilateral (Acute) Rheumatoid arthritis (Acute) UTI (urinary tract infection) (Acute) Hospital Course: Admitted for UTI, weakness,chronic pain Found to have Rheumatoid arthritis-- seen by Rheumatology Started on Methotrexate, folic acid, Prednsone On antibiotics for UTI urine cultures positive Pt is better Pain is better controlled stable for dc home with [employer] Daughter does not wish to take her to [facility] Condition: Stable - Instructions Referrals: Salazar Clarke MD [Staff Physician] - Mg Aguilar MD [Staff Physician] - 1 Week Disposition: HOME - Home Medications Comprehensive Discharge Medication List: Ambulatory Orders Amlodipine Besylate 5 mg PO DAILY 03/23/18 Lisinopril [Prinivil -] 40 mg PO DAILY 03/23/18 traMADol HCL [Ultram -] 50 mg PO Q8H PRN 03/23/18 Folic Acid - 1 mg PO DAILY #30 tablet 03/27/18 Gabapentin [Neurontin -] 100 mg PO TID #30 capsule 03/27/18 Levothyroxine [Synthroid -] 75 mcg PO 0700 #30 tablet 03/27/18 Lidocaine 5% Patch [Lidoderm -] 1 patch TP DAILY #30 patch 03/27/18 Methotrexate [Mexate -] 15 mg PO Q7D #30 tablet 03/27/18 Naproxen [Naprosyn -] 375 mg PO BID #60 tablet 03/27/18 Nitrofurantoin Monohyd/M-Cryst [Macrobid -] 100 mg PO BID #10 capsule 03/27/18 Pantoprazole Sodium [Protonix] 40 mg PO DAILY #60 tablet. 03/27/18 predniSONE [Deltasone -] 5 mg PO DAILY #30 tablet 03/27/18
[2018-03-27 14:05] VITALS: BP 132/58; PULSE 54; TEMP 98.2
[2018-03-27] MEDS ORDERED: PT OWN MED DRAWER 7, Y5N ONE (15:07)
[2018-03-29 00:14] LABS: CYCLIC CITRULLINE PEPTIDE AB >250 units (0-19)
== END 2018-03-27 17:57 | disposition home or self-care (01) ==
LOC: JER 14:43 → JERBED 17:48 → J5S 19:50
PROVIDERS: ADMIT Internal Medicine; ATTEND Internal Medicine
PROC: 3E03329 Introduction of Other Anti-infective into Peripheral Vein, Percutaneous Approach (ICD-10-PCS; principal; 2018-03-23)
PROC: 3E033GC Introduction of Other Therapeutic Substance into Peripheral Vein, Percutaneous Approach (ICD-10-PCS; 2018-03-23)
DX: N39.0 Urinary tract infection, site not specified (principal); I10 Essential (primary) hypertension; E78.5 Hyperlipidemia, unspecified; E03.9 Hypothyroidism, unspecified; R53.2 Functional quadriplegia; G62.9 Polyneuropathy, unspecified; M19.90 Unspecified osteoarthritis, unspecified site; M17.0 Bilateral primary osteoarthritis of knee; M06.9 Rheumatoid arthritis, unspecified
CPT/HCPCS: 36415; 71045-TC-FY; 73130-TC-LR-FY; 73130-TC-RT-FY; 73560-TC-RT-FY; 76604; 80053; 81003; 81015; 82784; 83605; 83690; 84155; 84165; 84443; 85025; 85027; 85651; 86200; 86334; 86431; 87040; 87086; 87186; 93005; 93010; 97116-GP; 97162-GP; 99285-25; G0378; J7030; J8610